=== PATIENT | male | born 1970 | race Hispanic/Latino ===

== ENCOUNTER 2016-08-03 16:03 | Emergency (ER) | payer MEDICARE ==
[2016-08-03 16:04] VITALS: BMI 37.4
[2016-08-03 16:24] VITALS: BP 141/83; PULSE 83; RESP 16; TEMP 98; O2SAT 96
--- NOTE | 2016-08-03 16:33 | ED PDOC ---
Arrival/HPI - General Chief Complaint: Lower Extremity Problem/Injury Time Seen by Provider: 08/03/16 16:29 Historian: Patient - History of Present Illness Narrative History of Present Illness (Text): 08/03/16 16:32 This 45 yo male presents to this ED c.o right knee pain since last night. Patient stated while running to get on the bus, he felt an acute pain on the anterior knee joint area. Denies hip pain, ankle pain, foot pain, fall, ecchymosis, weakness, paresthesias, or edema. Time/Duration: Other (since last night) Context: Home Past Medical History - Provider Review Nursing Documentation Reviewed: Yes - Past History Past History: Non-Contributing - Infectious Disease Hx of Infectious Diseases: None - Tetanus Immunization Tetanus Immunization: Up to Date - Past Medical History Past Medical History: No Previous - Cardiac Hx Cardiac Disorders: Yes Hx Hypertension: Yes - Pulmonary Hx Respiratory Disorders: No - Neurological Hx Neurological Disorder: No - HEENT Hx HEENT Disorder: No - Renal Hx Renal Disorder: No - Endocrine/Metabolic Hx Endocrine Disorders: Yes Hx Diabetes Mellitus Type 2: Yes - Hematological/Oncological Hx Blood Disorders: No - Integumentary Hx Dermatological Disorder: No - Musculoskeletal/Rheumatological Hx Falls: No - Gastrointestinal Hx Gastrointestinal Disorders: No - Genitourinary/Gynecological Hx Genitourinary Disorders: No - Psychiatric Hx Psychophysiologic Disorder: No Hx Substance Use: No - Surgical History Hx Orthopedic Surgery: Yes (BILAT KNEE) - Anesthesia Hx Anesthesia: Yes Hx Anesthesia Reactions: No Hx Malignant Hyperthermia: No - Suicidal Assessment Feels Threatened In Home Enviroment: No Family/Social History - Physician Review Nursing Documentation Reviewed: Yes Family/Social History: No Known Family HX Smoking Status: Former Smoker Hx Alcohol Use: No Hx Substance Use: No Hx Substance Use Treatment: No Allergies/Home Meds Allergies/Adverse Reactions: Allergies No Known Allergies Allergy (Verified 08/03/16 16:18) Home Medications: Home Meds Medication Instructions Recorded Confirmed Metformin ER [Glucophage XR] 500 mg PO DAILY 04/29/15 08/03/16 Simvastatin [Zocor] 40 mg PO HS 04/29/15 08/03/16 Glimepiride [Amaryl] 1 mg PO DAILY 08/03/16 08/03/16 Losartan [Cozaar] 25 mg PO DAILY 08/03/16 08/03/16 Review of Systems - Review of Systems Constitutional: Normal. absent: Fatigue, Weight Change, Fevers Eyes: Normal ENT: Normal Respiratory: Normal Cardiovascular: Normal Gastrointestinal: Normal Genitourinary Male: Normal Musculoskeletal: Other (Right knee pain) Skin: Normal Neurological: Normal Endocrine: Normal Hemo/Lymphatic: Normal Psychiatric: Normal Physical Exam Vital Signs Temp Pulse Resp BP Pulse Ox 08/03/16 16:23 98.0 F 83 16 141/83 96 Temperature: Afebrile Blood Pressure: Normal Pulse: Regular Respiratory Rate: Normal Appearance: Positive for: Well-Appearing, Non-Toxic, Comfortable Pain Distress: None Mental Status: Positive for: Alert and Oriented X 3 - Systems Exam Head: Present: Atraumatic, Normocephalic Pupils: Present: PERRL Extroacular Muscles: Present: EOMI Conjunctiva: Present: Normal Mouth: Present: Moist Mucous Membranes Neck: Present: Normal Range of Motion Respiratory/Chest: Present: Clear to Auscultation, Good Air Exchange. No: Respiratory Distress, Accessory Muscle Use Cardiovascular: Present: Regular Rate and Rhythm, Normal S1, S2. No: Murmurs Abdomen: Present: Normal Bowel Sounds. No: Tenderness, Distention, Peritoneal Signs Back: Present: Normal Inspection. No: CVA Tenderness Upper Extremity: Present: Normal Inspection. No: Cyanosis, Edema Lower Extremity: Present: Normal Inspection, NORMAL PULSES, Normal ROM, Tenderness (Mild anterior right knee joint tenderness. No erythema, or ecchymosis. No septic knee joint. [place] test was negation. Anterior and Posterior Knee drawer test were negative.), Neurovascularly Intact, Capillary Refill < 2 s. No: Edema, CALF TENDERNESS, Pattie's Sign, Swelling, Erythema, Deformity, Temperature Abnormalties Neurological: Present: GCS=15, CN II-XII Intact, Speech Normal Skin: Present: Warm, Dry, Normal Color. No: Rashes Psychiatric: Present: Alert, Oriented x 3, Normal Insight, Normal Concentration Medical Decision Making ED Course and Treatment: 08/03/16 17:35 Re-evaluation. Patient feels better. Discussed results and plan with patient who expresses understanding. All questions answered and there is agreement with the plan to discharge home with instructions. Patient stable for discharge. Return if symptoms persist or worsen. Patient stated he has a knee brace at home. He refused cane [place] PRACTICE OR STUDENT TEACHER AWARE was reviewed. I had a long discussion regarding the use of Opiods pain medication, which has a high risk for addiction to narcotic pain medication. Percocet can also cause constipation, drowsiness, and allergies. Do not drive or operate Machinery when using Percocet. Percocet could be use for no more than 2 days. Re-evaluation Time: 17:35 Reassessment Condition: Re-examined, Improved - RAD Interpretation Narrative RAD Interpretations (Text): 08/03/16 17:36 Knee x-rays: No Fx or sublux. Normal soft tissue. Mild DJD Radiology Orders: 08/03/16 16:40 KNEE W PATELLA RIGHT 3 VIEW [RAD] Stat - Medication Orders Current Medication Orders: Discontinued Medications Ketorolac Tromethamine (Toradol) 15 mg IM STAT STA Stop: 08/03/16 16:42 Last Admin: 08/03/16 16:53 Dose: 15 mg Oxycodone/Acetaminophen (Percocet 5/325 Mg Tab) 1 tab PO STAT STA Stop: 08/03/16 16:42 Last Admin: 08/03/16 16:53 Dose: 1 tab Disposition/Present on Arrival - Present on Arrival Any Indicators Present on Arrival: No History of DVT/PE: No History of Uncontrolled Diabetes: Yes Urinary Catheter: No History of Decub. Ulcer: No History Surgical Site Infection Following: None - Disposition Have Diagnosis and Disposition been Completed?: Yes Diagnosis: Knee pain Disposition: HOME/ ROUTINE Disposition Time: 17:36 Patient Plan: Discharge Condition: GOOD Discharge Instructions (ExitCare): Knee Pain (ED) Additional Instructions: Call private doctor for follow up visit in 1-2 days. Take medication as instructed. Prescriptions: Naproxen 500 mg PO BID #14 tab oxyCODONE/Acetaminophen [Percocet 5/325 mg Tab] 1 ea PO BID PRN #5 tab PRN Reason: Pain, Severe (8-10) Referrals: Cale Garnett MD [Family Provider] - Follow up with primary Forms: WORK NOTE
[2016-08-03] MEDS ORDERED: Oxycodone/Acetaminophen 5/325 mg Tab PO STA (16:41)
--- NOTE | 2016-08-04 09:35 | RAD ---
PROCEDURE: Right Knee Radiographs. HISTORY: pain COMPARISON: None. FINDINGS: BONES: Normal. No fracture. JOINTS: Normal. No osteoarthritis. JOINT EFFUSION: None. OTHER FINDINGS: The patella is unremarkable IMPRESSION: Normal radiographs of the right knee.
== END 2016-08-03 17:47 | disposition home or self-care (01) ==
LOC: ED 16:03
DX: M25.561 Pain in right knee (principal)
CPT/HCPCS: 73562; 96372; 99282; J1885

== ENCOUNTER 2016-09-11 08:00 | Emergency (ER) | payer MEDICARE ==
[2016-09-11 19:39] VITALS: BMI 37.4
[2016-09-11 20:04] VITALS: BP 149/81; PULSE 80; RESP 16; TEMP 98.8; O2SAT 98
[2016-09-11] MEDS ORDERED: Naproxen 550 mg Tab PO STA (20:31)
--- NOTE | 2016-09-11 21:07 | ED PDOC ---
Arrival/HPI - General Chief Complaint: Lower Extremity Problem/Injury Time Seen by Provider: 09/11/16 19:55 Historian: Patient - History of Present Illness Narrative History of Present Illness (Text): 09/11/16 19:55 A 45 year old male presents to the emergency department complaining of left ankle pain or the past 4 days. Patient notes intermittent chronic right knee pain, due to a prior injury and has had surgery to repair it, but since has not followed up with orthopedics. He denies any trauma, numbness, decreased sensation in motion, fever, or any other complaints at this time. Time/Duration: < week (4 days) Symptom Onset: Gradual Symptom Course: Unchanged Activities at Onset: Rest Context: Home Past Medical History - Provider Review Nursing Documentation Reviewed: Yes - Past History Past History: Non-Contributing - Infectious Disease Hx of Infectious Diseases: None - Tetanus Immunization Tetanus Immunization: Up to Date - Past Medical History Past Medical History: No Previous - Cardiac Hx Cardiac Disorders: Yes Hx Hypertension: Yes - Pulmonary Hx Respiratory Disorders: No - Neurological Hx Neurological Disorder: No - HEENT Hx HEENT Disorder: No - Renal Hx Renal Disorder: No - Endocrine/Metabolic Hx Endocrine Disorders: Yes Hx Diabetes Mellitus Type 2: Yes - Hematological/Oncological Hx Blood Disorders: No - Integumentary Hx Dermatological Disorder: No - Musculoskeletal/Rheumatological Hx Falls: No - Gastrointestinal Hx Gastrointestinal Disorders: No - Genitourinary/Gynecological Hx Genitourinary Disorders: No - Psychiatric Hx Psychophysiologic Disorder: No Hx Substance Use: No - Surgical History Hx Orthopedic Surgery: Yes (BILAT KNEE) - Anesthesia Hx Anesthesia: Yes Hx Anesthesia Reactions: No Hx Malignant Hyperthermia: No - Suicidal Assessment Feels Threatened In Home Enviroment: No Family/Social History - Physician Review Nursing Documentation Reviewed: Yes Family/Social History: Unknown Family HX Smoking Status: Former Smoker Hx Alcohol Use: No Hx Substance Use: No Hx Substance Use Treatment: No Allergies/Home Meds Allergies/Adverse Reactions: Allergies No Known Allergies Allergy (Verified 09/11/16 20:00) Home Medications: Home Meds Medication Instructions Recorded Confirmed Metformin ER [Glucophage XR] 500 mg PO DAILY 04/29/15 09/11/16 Simvastatin [Zocor] 40 mg PO HS 04/29/15 09/11/16 Glimepiride [Amaryl] 1 mg PO DAILY 08/03/16 09/11/16 Losartan [Cozaar] 25 mg PO DAILY 08/03/16 09/11/16 Review of Systems - Physician Review All systems were reviewed & negative as marked: Yes - Review of Systems Constitutional: absent: Fevers Musculoskeletal: Other (right knee and left ankle pain) Neurological: Other (no numbess) Physical Exam Vital Signs Reviewed: Yes Vital Signs Temp Pulse Resp BP Pulse Ox 09/11/16 20:05 98.8 F 80 16 149/81 98 09/11/16 20:01 98.8 F 80 16 149/81 98 Temperature: Afebrile Blood Pressure: Normal Pulse: Regular Respiratory Rate: Normal Appearance: Positive for: Well-Appearing, Non-Toxic, Comfortable Pain Distress: None Mental Status: Positive for: Alert and Oriented X 3 - Systems Exam Head: Present: Atraumatic, Normocephalic Neck: Present: Normal Range of Motion Respiratory/Chest: Present: Clear to Auscultation, Good Air Exchange. No: Respiratory Distress, Accessory Muscle Use Cardiovascular: Present: Regular Rate and Rhythm, Normal S1, S2. No: Murmurs Back: Present: Normal Inspection Upper Extremity: Present: Normal Inspection. No: Cyanosis, Edema Lower Extremity: Present: NORMAL PULSES (2+), Normal ROM, Other (Mid point tenderness to the medial left ankle 2+; normal foot exam ) Neurological: Present: GCS=15, CN II-XII Intact, Speech Normal Skin: Present: Warm Psychiatric: Present: Alert, Oriented x 3, Normal Insight, Normal Concentration Medical Decision Making ED Course and Treatment: 09/11/16 19:55 Impression: A 45 year old male with left ankle pain and chronic right knee pain. Differential Diagnosis included but are not limited to: Tendonitis vs. Arthritis Plan: -- Left Ankle X-Ray -- Naproxen -- Reassess and disposition Prior Visits: Notes and results from previous visits were reviewed. Patient was last seen in the Emergency department on Progress Notes: 09/11/16 21:28 XR L ankle: mild soft tissue swelling, no fracture, no dislocation, as read by PA Patient advised that official radiology read of XR is still pending and will call the patient if there is any discrepancy within 24 hours. X-ray results discussed with patient in great detail. Holland wrap applied to the left ankle. Based on history, exam and diagnostic results plan will be for outpatient follow -up with orthopedic referral provided. Prescription provided. Patient states he fully agrees with and understands discharge instructions. States that he agrees with the plan and disposition. Verbalized and repeated discharge instructions and plan. I have given the patient opportunity to ask any additional questions. Follow up with orthopedic referral provided in 1-2 days without fail. Advised to take medication as prescribed. Return to the emergency room at any time for any new or worsening symptoms. - RAD Interpretation Radiology Orders: 09/11/16 20:31 ANKLE LEFT 3 VIEWS ROUTINE [RAD] Stat - Medication Orders Current Medication Orders: Discontinued Medications Naproxen (Anaprox Ds) 550 mg PO ONCE STA Stop: 09/11/16 20:32 Last Admin: 09/11/16 21:07 Dose: 550 mg - PA / SEO COORDINATOR / Resident Statement MD/DO has reviewed & agrees with the documentation as recorded. - Scribe Statement The provider has reviewed the documentation as recorded by the Scribe Meryl Rome training under Terrance De La Fuente Provider Scribe Attestation: All medical record entries made by the Scribe were at my direction and personally dictated by me. I have reviewed the chart and agree that the record accurately reflects my personal performance of the history, physical exam, medical decision making, and the department course for this patient. I have also personally directed, reviewed, and agree with the discharge instructions and disposition. Disposition/Present on Arrival - Present on Arrival Any Indicators Present on Arrival: Yes History of DVT/PE: No History of Uncontrolled Diabetes: Yes Urinary Catheter: No History of Decub. Ulcer: No History Surgical Site Infection Following: None - Disposition Have Diagnosis and Disposition been Completed?: Yes Diagnosis: Ankle pain, left, Knee pain, right Disposition: HOME/ ROUTINE Disposition Time: 21:15 Patient Plan: Discharge Condition: GOOD Discharge Instructions (ExitCare): Arthralgia (ED), Tendinitis (ED) Print Language: [place] Additional Instructions: Thank you for letting us take care of you today. You were treated for right knee pain, left ankle pain, likely tendinitis. The emergency medical care you received today was directed at your acute symptoms. If you were prescribed any medication, please fill it and take as directed. It may take several days for your symptoms to resolve. Return to the Emergency Department if your symptoms worsen, do not improve, or if you have any other problems. Please contact your doctor in 2 days for re-evaluation and follow up / or call one of the physicians/clinics you have been referred to that are listed on the Patient Visit Information form that is included in your discharge packet. Bring any paperwork you were given at discharge with you along with any medications you are taking to your follow up visit. Our treatment cannot replace ongoing medical care by a primary care provider (PCP) outside of the emergency department. Thank you for allowing the [facility] team to be part of your care today. Prescriptions: Meloxicam [Mobic] 15 mg PO DAILY #20 tab Referrals: Montserrat Bolaños, [Primary Care Provider] - Follow up with primary Shemar Torrez III, MD [Medical Doctor] - Follow up with primary Forms: WORK NOTE
--- NOTE | 2016-09-12 10:46 | RAD ---
PROCEDURE: Left Ankle Radiographs. HISTORY: pain COMPARISON: None FINDINGS: BONES: Normal. No fracture. Incidentally noted accessory ossicle, the os trigonum. JOINTS: Normal. No osteoarthritis. Ankle mortise maintained. Talar dome intact SOFT TISSUES: Normal. OTHER FINDINGS: None. IMPRESSION: Normal left ankle radiographs.
== END 2016-09-11 22:03 | disposition home or self-care (01) ==
LOC: ED 19:39
DX: M25.572 Pain in left ankle and joints of left foot (principal); M25.561 Pain in right knee; I10 Essential (primary) hypertension

== ENCOUNTER 2017-01-29 07:49 | Inpatient (IN) | payer MEDICARE, OTHER ==
[2017-01-29 07:54] VITALS: BMI 32.1
--- NOTE | 2017-01-29 08:34 | ED PDOC ---
Arrival/HPI - General Chief Complaint: Male Genitourinary Time Seen by Provider: 01/29/17 07:55 Historian: Patient - History of Present Illness Narrative History of Present Illness (Text): 01/29/17 08:25 A 46 year old male, whose past medical history includes hypertension and diabetes type 2, presents to the emergency department complaining of bloody stool since 03:00. Patient reports patient has had two episode of dark bloody stool and has been unable to sleep due to concern of symptom. Patient mentions episode has occurred before last year, but had not seen a doctor. Patient has no other complaints at this time. Currently does no take any blood thinners, but takes Excedrin Extra Strength (intake approximately 3-4 days at a time) and Naproxen (taken 2-3 times a week or whenever experiencing pain in neck). Patient has had no recent blood transfusions. No history of colon CA in family. PMD: Dr. Cale Garnett Time/Duration: 4-6 hours (03:00) Symptom Onset: Sudden Symptom Course: Unchanged Past Medical History - Provider Review Nursing Documentation Reviewed: Yes - Past History Past History: Non-Contributing - Infectious Disease Hx of Infectious Diseases: None - Tetanus Immunization Tetanus Immunization: Up to Date - Past Medical History Past Medical History: No Previous - Cardiac Hx Cardiac Disorders: Yes Hx Hypertension: Yes - Pulmonary Hx Respiratory Disorders: No - Neurological Hx Neurological Disorder: No - HEENT Hx HEENT Disorder: No - Renal Hx Renal Disorder: No - Endocrine/Metabolic Hx Endocrine Disorders: Yes Hx Diabetes Mellitus Type 1: Yes - Hematological/Oncological Hx Blood Disorders: No - Integumentary Hx Dermatological Disorder: No - Musculoskeletal/Rheumatological Hx Musculoskeletal Disorders: No - Gastrointestinal Hx Gastrointestinal Disorders: No - Genitourinary/Gynecological Hx Genitourinary Disorders: No - Psychiatric Hx Psychophysiologic Disorder: No Hx Substance Use: No - Surgical History Hx Orthopedic Surgery: Yes (BILAT KNEE) - Anesthesia Hx Anesthesia: Yes Hx Anesthesia Reactions: No Hx Malignant Hyperthermia: No - Suicidal Assessment Feels Threatened In Home Enviroment: No Family/Social History - Physician Review Nursing Documentation Reviewed: Yes Family/Social History: Other (nc; patient states having no family history of colon CA) Smoking Status: Light Smoker < 10 Cigarettes Daily Hx Alcohol Use: No Hx Substance Use: No Hx Substance Use Treatment: No Allergies/Home Meds Allergies/Adverse Reactions: Allergies No Known Allergies Allergy (Verified 01/29/17 11:28) Home Medications: Home Meds Medication Instructions Recorded Confirmed Metformin ER [Glucophage XR] 500 mg PO DAILY 04/29/15 01/29/17 Glimepiride [Amaryl] 1 mg PO DAILY 08/03/16 01/29/17 Cyclobenzaprine [Flexeril] 10 tab PO PRN PRN 01/29/17 01/29/17 Losartan [Cozaar] 25 mg PO DAILY 01/29/17 01/29/17 Naproxen [Naprosyn] 500 tab PO PRN PRN 01/29/17 01/29/17 Simvastatin [Simvastatin] 10 mg PO HS 01/29/17 01/29/17 Review of Systems - Review of Systems Genitourinary Male: Hematuria (2 episodes of dark bloody stools since 03:00) Physical Exam Vital Signs Reviewed: Yes Vital Signs Temp Pulse Resp BP Pulse Ox 01/29/17 13:27 82 18 126/73 98 01/29/17 10:12 92 H 18 155/94 H 98 01/29/17 08:02 99.0 F 106 H 18 196/99 H 98 Temperature: Afebrile Blood Pressure: Hypertensive Pulse: Regular Respiratory Rate: Normal Pain Distress: None Mental Status: Positive for: Alert and Oriented X 3 Finger Stick Blood Glucose: 428 - Systems Exam Head: Present: Atraumatic, Normocephalic Pupils: Present: PERRL Extroacular Muscles: Present: EOMI Conjunctiva: Present: Normal Mouth: Present: Moist Mucous Membranes Neck: Present: Normal Range of Motion Respiratory/Chest: Present: Clear to Auscultation, Good Air Exchange. No: Respiratory Distress, Accessory Muscle Use Cardiovascular: Present: Regular Rate and Rhythm, Normal S1, S2. No: Murmurs Abdomen: Present: Normal Bowel Sounds. No: Tenderness, Distention, Peritoneal Signs Genitourinary Male: Present: Other (stool sample grossly bloody) Back: Present: Normal Inspection Upper Extremity: Present: Normal Inspection. No: Cyanosis, Edema Lower Extremity: Present: Normal Inspection. No: Edema Neurological: Present: GCS=15, CN II-XII Intact, Speech Normal Skin: Present: Warm, Dry, Normal Color. No: Rashes Psychiatric: Present: Alert, Oriented x 3, Normal Insight, Normal Concentration Medical Decision Making - Lab Interpretations Lab Results: 01/29/17 08:55 01/29/17 08:55 Lab Results 01/29/17 10:46: Blood Type Confirm B POSITIVE 01/29/17 08:55: PT 11.6, INR 1.05, APTT 29.7 01/29/17 08:55: Blood Type B POSITIVE, Antibody Screen Negative, BBK History Checked No verified bt 01/29/17 08:55: Sodium 134, Potassium 4.6, Chloride 99, Carbon Dioxide 29, Anion Gap 11, BUN 20, Creatinine 0.8, Est GFR ( Amer) > 60, Est GFR (Non- Af Amer) > 60, Random Glucose 476 H*, Calcium 9.4, Total Bilirubin 0.8, AST 15 L , ALT 40, Alkaline Phosphatase 135 H, Total Protein 7.3, Albumin 4.2, Globulin 3.2, Albumin/Globulin Ratio 1.3 01/29/17 08:55: WBC 12.2 H, RBC 4.83, Hgb 14.4, Hct 41.9 L, MCV 86.7, MCH 29.8, MCHC 34.4, RDW 13.4, Plt Count 252, MPV 12.7 H, Gran % 59.0, Lymph % (Auto) 29.0 , [place] % (Auto) 8.5 H, Eos % (Auto) 2.9, Baso % (Auto) 0.6, Gran # 7.22 H, Lymph # 3.5 H, [place] # 1.0 H, Eos # 0.4, Baso # 0.07 I have reviewed the lab results: Yes - Medication Orders Current Medication Orders: Sodium Chloride (Sodium Chloride 0.9%) 1,000 mls @ 100 mls/hr IV .Q10H JOSÉ MIGUEL Last Admin: 01/30/17 20:00 Dose: 100 mls/hr eMAR Start Stop Document 01/30/17 20:00 SD (Rec: 01/30/17 22:29 SD [id number]) Intravenous Solution Start Date 01/30/17 Start Time 20:00 Insulin Human Lispro (Humalog Med) 0 units SC ACHS JOSÉ MIGUEL PRN Reason: Protocol Last Admin: 01/30/17 22:28 Dose: Not Given Non-Admin Reason: Blood Sugar Parameter MAR Blood Glucose Document 01/30/17 22:28 SD (Rec: 01/30/17 22:28 SD [id number]) Blood Glucose Finger Stick Blood Glucose (70-120) 252 Metoprolol Tartrate (Lopressor) 5 mg IVP Q8H PRN PRN Reason: Systolic Blood Pressure Ondansetron HCl (Zofran Tab) 4 mg PO Q8H PRN PRN Reason: Nausea/Vomiting Pantoprazole Sodium (Protonix Inj) 40 mg IVP BID JOSÉ MIGUEL Last Admin: 01/30/17 17:40 Dose: 40 mg IVP Administration Document 01/30/17 17:40 RV (Rec: 01/30/17 17:40 RV [id number]) Charges for Administration # of IVP Administrations 1 Discontinued Medications Sodium Chloride (Sodium Chloride 0.9%) 1,000 mls @ 999 mls/hr IV .Q1H1M STA Stop: 01/29/17 10:25 Last Admin: 01/29/17 09:30 Dose: 999 mls/hr eMAR Start Stop Document 01/29/17 09:30 OCS (Rec: 01/29/17 10:01 OCS [id number] Intravenous Solution Start Date 01/29/17 Start Time 09:30 Sodium Chloride (Sodium Chloride 0.9%) 1,000 mls @ 80 mls/hr IV .[id number] [facility] Insulin Human Regular (Humulin R Low) 1 units SC ACHS JOSÉ MIGUEL PRN Reason: Protocol Last Admin: 01/29/17 11:23 Dose: 3 units MAR Blood Glucose Document 01/29/17 11:23 OCS (Rec: 01/29/17 11:24 [id number] Blood Glucose Finger Stick Blood Glucose (70-120) 285 Subcutaneous Administrations Document 01/29/17 11:23 OCS (Rec: 01/29/17 11:24 OCS [id number]) Injection Site MAR Injection Site Umbilicus Charges for Administration # of Subcutaneous Administrations 1 Pantoprazole Sodium (Protonix Inj) 80 mg IVP STAT STA Stop: 01/29/17 08:32 Last Admin: 01/29/17 08:51 Dose: 80 mg IVP Administration Document 01/29/17 08:51 OCS (Rec: 01/29/17 08:52 [id number] Charges for Administration # of IVP Administrations 1 Pneumococcal Polyvalent Vaccine (Pneumovax 23 Vaccine) 0.5 ml IM .ONCE ONE Stop: 01/29/17 16:11 Last Admin: 01/29/17 16:15 Dose: Immunization Registry Document 01/29/17 16:15 ML (Rec: 01/29/17 16:15 ML [id number]) Immunization Registry Consent Date 01/29/17 Polyethylene Glycol/Electrolytes (Golytely) 4,000 ml PO ONCE ONE Stop: 01/30/17 17:47 Last Admin: 01/30/17 18:16 Dose: 4,000 ml Sodium Phosphate (Fleet Enema) 135 ml RC STAT STA Stop: 01/30/17 11:04 Last Admin: 01/30/17 11:16 Dose: 135 ml - Scribe Statement The provider has reviewed the documentation as recorded by the Marshall Melendez Provider Scribe Attestation: All medical record entries made by the Scribe were at my direction and personally dictated by me. I have reviewed the chart and agree that the record accurately reflects my personal performance of the history, physical exam, medical decision making, and the department course for this patient. I have also personally directed, reviewed, and agree with the discharge instructions and disposition. Disposition/Present on Arrival - Present on Arrival Any Indicators Present on Arrival: Yes History of DVT/PE: No History of Uncontrolled Diabetes: Yes Urinary Catheter: No History of Decub. Ulcer: No History Surgical Site Infection Following: None - Disposition Have Diagnosis and Disposition been Completed?: Yes Diagnosis: GI bleeding Disposition: HOSPITALIZED Disposition Time: 12:23 Patient Problems: Current Active Problems Problem Status Onset GI bleeding Acute Condition: STABLE
[2017-01-29 09:11] LABS: BASO # 0.07 K/mm3 (0.0-2.0); BASO % 0.6 % (0.0-3.0); EOS # 0.4 (0.0-0.7); EOS % 2.9 % (1.5-5.0); GRAN # 7.22 (1.4-6.5); HEMATOCRIT 41.9 % (42.0-52.0); LYMPH # 3.5 (1.2-3.4); MEAN CELL VOLUME 86.7 fl (80.0-105.0); MEAN CORPUSCULAR HEMOGLOBIN 29.8 pg (25.0-35.0); MEAN CORPUSCULAR HGB CONC 34.4 g/dl (31.0-37.0); MEAN PLATELET VOLUME 12.7 fl (7.0-11.0); MONO % 8.5 % (1.0-6.0); RED CELL DISTRIBUTION WIDTH 13.4 % (11.5-14.5); WHITE BLOOD COUNT 12.2 10^3/ul (4.5-11.0)
[2017-01-29 09:22] LABS: ALB/GLOB RATIO 1.3 (1.1-1.8); ALKALINE PHOSPHATASE 135 U/L (38-126); ALT/SGPT 40 U/L (7-56); AST/SGOT 15 U/L (17-59); BILIRUBIN,TOTAL 0.8 mg/dL (0.2-1.3); BLOOD UREA NITROGEN 20 mg/dL (7-21); CALCIUM 9.4 mg/dL (8.4-10.5); CARBON DIOXIDE 29 mmol/L (21-33); CHLORIDE 99 mmol/L (95-110); GFR AFRICAN-AMERICAN > 60; POTASSIUM 4.6 mmol/L (3.6-5.0); SODIUM 134 mmol/L (132-148); TOTAL PROTEIN 7.3 g/dL (5.8-8.3)
[2017-01-29 09:25] LABS: GLUCOSE,RANDOM 476 mg/dL (70-110)
[2017-01-29] MEDS ORDERED: Sodium Chloride 0.9% 1,000 ML IV STA (09:25)
[2017-01-29 09:27] LABS: INR 1.05 (0.93-1.08); PARTIAL THROMBOPLASTIN TIME 29.7 Seconds (25.1-36.5)
[2017-01-29] MEDS ORDERED: Insulin Regular 1 UNITS/0.01 ML ML ONE (10:11)
[2017-01-29] MEDS ORDERED: Insulin Reg-LOW-Coverage SC SCH (11:30)
[2017-01-29] MEDS ORDERED: Metoprolol 1 mg/ml Inj IVP PRN (13:37)
[2017-01-29] MEDS ORDERED: Sodium Chloride 0.9% 1,000 ML IV SCH (13:45)
[2017-01-29] MEDS: Sodium Chloride 0.9% 1,000 ML IV SCH (13:50)
--- NOTE | 2017-01-29 15:02 | CP.PCM.HP ---
<Steffen Solis - Last Filed: 01/29/17 14:53> History of Present Illness - History of Present Illness History of Present Illness: CC: Blood in stool HPI: Pt is a 46 y/o male w/ PMHx of DM II, HTN, HLD, ADHD, and chronic neck/ back pain presents w/ painless blood per rectum since 5pm yesterday. Pt also complained of assoc intermittent lower abd pain. Pt described the pain as a dull ache, and denies any radiation of pain. His last episode of hematochezia occurred in the ER, and his last normal bowel moment was yesterday afternoon. Pt reports taking occasional Naproxen for a chronic work related neck and back pain. Pt denied any h/o or current hemorrhoids or pain with wiping. Pt denied any past EGD or colonscopies. Pt states he BRBPR on one other occasion a few months ago, but resolved spontaneously. Pt also complains of BANKS, dizziness, fatigue, and nausea. Pt denies any CP, SOB, vomiting, constipation, diarrhea, fever, chills, hematemesis, numbness, tingling, dysurea, hematuria, and blurry vision. PMD: Tamir PMHx: HTN, DM II, HLD, ADHD, chronic neck/back pain PSHx: bilateral knee surgery, tonsillectomy FHx: Non-contributory Allergies: NKDA Social History: Quit EtOH 20 yrs ago, smokes 1 cigar/day for the past 2 yrs, quit smoking cigarettes 7 yrs ago, and denies any illicit drug use. Meds: Reviewed as per MAR Present on Admission - Present on Admission Any Indicators Present on Admission: No Review of Systems - Review of Systems Review of Systems: 12 point ROS reviewed and is negative other than what is stated in HPI. Past Patient History - Infectious Disease Hx of Infectious Diseases: None - Tetanus Immunizations Tetanus Immunization: Up to Date - Past Social History Smoking Status: Light Smoker < 10 Cigarettes Daily - CARDIAC Hx Cardiac Disorders: Yes Hx Hypertension: Yes - PULMONARY Hx Respiratory Disorders: No - NEUROLOGICAL Hx Neurological Disorder: No - HEENT Hx HEENT Problems: No - RENAL Hx Chronic Kidney Disease: No - ENDOCRINE/METABOLIC Hx Endocrine Disorders: Yes Hx Diabetes Mellitus Type 1: Yes - HEMATOLOGICAL/ONCOLOGICAL Hx Blood Disorders: No - INTEGUMENTARY Hx Dermatological Problems: No - MUSCULOSKELETAL/RHEUMATOLOGICAL Hx Musculoskeletal Disorders: No - GASTROINTESTINAL Hx Gastrointestinal Disorders: No - GENITOURINARY/GYNECOLOGICAL Hx Genitourinary Disorders: No - PSYCHIATRIC Hx Psychophysiologic Disorder: No Hx Substance Use: No - SURGICAL HISTORY Hx Orthopedic Surgery: Yes (BILAT KNEE) - ANESTHESIA Hx Anesthesia: Yes Hx Anesthesia Reactions: No Hx Malignant Hyperthermia: No Meds Allergies/Adverse Reactions: Allergies Allergy/AdvReac Type Severity Reaction Status Date / Time No Known Allergies Allergy Verified 01/29/17 11:28 Physical Exam - Constitutional Appears: No Acute Distress - Head Exam Head Exam: ATRAUMATIC, NORMOCEPHALIC - Eye Exam Eye Exam: EOMI, Normal appearance, PERRL. absent: Conjunctival injection - ENT Exam ENT Exam: Mucous Membranes Moist, Normal Exam - Neck Exam Neck exam: Positive for: Full Rom. Negative for: Lymphadenopathy, Tenderness, Thyromegaly - Respiratory Exam Respiratory Exam: Clear to Auscultation Bilateral. absent: Accessory Muscle Use , Rales, Rhonchi, Wheezes, Respiratory Distress - Cardiovascular Exam Cardiovascular Exam: RRR, +S1, +S2. absent: Diastolic murmur, Gallop, Rubs, Systolic Murmur - GI/Abdominal Exam GI & Abdominal Exam: Normal Bowel Sounds, Soft, Tenderness (LLQ, RLQ, suprapubic ). absent: Distended, Guarding, Mass, Rebound, Rigid - Rectal Exam Rectal Exam: absent: Hemorrhoids, Fecal Impaction Additional comments: Blood visualized per rectum, no hemorrhoids, anal fissure, fistula, prostate enlargement - Extremities Exam Extremities exam: Positive for: normal inspection - Back Exam Back exam: NORMAL INSPECTION - Psychiatric Exam Psychiatric exam: Normal Affect, Normal Mood - Skin Skin Exam: Dry, Intact, Normal Color, Warm Results - Vital Signs Recent Vital Signs: Last Vital Signs Temp 99.0 F 01/29/17 08:02 Pulse 82 01/29/17 13:27 Resp 18 01/29/17 13:27 BP 126/73 01/29/17 13:27 Pulse Ox 98 01/29/17 13:27 - Labs Result Diagrams: 01/29/17 08:55 01/29/17 08:55 Assessment & Plan - Assessment and Plan (Free Text) Assessment: 46 yo male with pmh of HTN, DM, ADHD, HLD, and chronic neck/back pain presents with BRBPR will be admitted for evaluation and treatment for lower GI bleed. Plan: 1. Lower GI Bleed - Admitted to remote telemetry, inpatient - H/H currently stable - Vital signs q4, monitor for tachycardia, hypotension - GI consulted - NPO, NS@100 - Protonix 40 mg IVP BID - F/u CT abd, CXR, EKG - F/u UA, urine culture - Zofran for nausea 2. DM - Glucose on admission 476 - Hold PO meds - ISS - Accuchecks ACHS - F/u A1C 3. HTN - Lopressor prn for SBP >200 - Hold home med for now - Monitor for bradycardia 4. Chronic neck/back pain - Hold Naproxen as it a/w upper GI bleed 5. H/o HLD - F/u Lipid panel - Hold home med for now GI/DVT PPx - Protonix - SCDs Pt seen and discussed in detail with Dr. Mello. Adolph Solis, PGY1 <Kimbre Mello - Last Filed: 01/29/17 16:17> Results - Vital Signs Recent Vital Signs: Last Vital Signs Temp 99.0 F 01/29/17 08:02 Pulse 82 01/29/17 13:27 Resp 18 01/29/17 13:27 BP 126/73 01/29/17 13:27 Pulse Ox 98 01/29/17 13:27 - Labs Result Diagrams: 01/29/17 08:55 01/29/17 08:55 Labs: Laboratory Results - last 24 hr 01/29/17 16:02 POC Glucose (mg/dL) 254 H Attending/Attestation - Attestation I have personally seen and examined this patient.: Yes I have fully participated in the care of the patient.: Yes I have reviewed all pertinent clinical information: Yes Notes (Text): 01/29/17 16:09 46 year old male with past medical history of hypertension, diabetes and dyslipidemia who presents with LGIB/BRBPR. CT abd/pelvis is negative for acute findings. Continue with NPO, IVF and protonix. GI evaluation is requested. Continue with insulin ss. Hold diabetes medications and antihypertensives for now. He also complains of lower abdominal pain. Ua/Ucx is ordered. Kimber Mello MD Hospitalist.
--- NOTE | 2017-01-29 15:31 | RAD ---
HISTORY: r/o pneumonia COMPARISON: 02/12/2016. FINDINGS: LUNGS: The lungs are well inflated and clear. PLEURA: No significant pleural effusion identified, no pneumothorax apparent. CARDIOVASCULAR: Normal. OSSEOUS STRUCTURES: There is mild levoscoliosis in the thoracolumbar spine. VISUALIZED UPPER ABDOMEN: Normal. OTHER FINDINGS: None. IMPRESSION: No active pulmonary disease.
--- NOTE | 2017-01-29 15:35 | CT ---
PROCEDURE: CT Abdomen and Pelvis without intravenous contrast HISTORY: lower gi bleed COMPARISON: None. TECHNIQUE: Without contrast.. Contrast Dose: Radiation dose: Total exam DLP = 874 mGy-cm. This CT exam was performed using one or more of the following dose reduction techniques: Automated exposure control, adjustment of the mA and/or kV according to patient size, and/or use of iterative reconstruction technique. FINDINGS: LOWER THORAX: Unremarkable. LIVER: Unremarkable. No gross lesion or ductal dilatation. GALLBLADDER AND BILE DUCTS: Unremarkable. PANCREAS: Unremarkable. No gross lesion or ductal dilatation. SPLEEN: Unremarkable. ADRENALS: Unremarkable. No mass. KIDNEYS AND URETERS: There is a 10 mm nonobstructing stone in the left kidney VASCULATURE: Unremarkable. No aortic aneurysm. BOWEL: Unremarkable. No obstruction. No gross mural thickening. APPENDIX: Unremarkable. Normal appendix. PERITONEUM: Unremarkable. No free fluid. No free air. LYMPH NODES: Unremarkable. No enlarged lymph nodes. BLADDER: Unremarkable. REPRODUCTIVE: Unremarkable. BONES: No acute fracture. OTHER FINDINGS: None. IMPRESSION: No acute findings
[2017-01-29] MEDS ORDERED: Influenza Vaccine 60 mcg/0.5 mL SYR (4YR UP) IM ONE (16:10)
[2017-01-29] MEDS ORDERED: Pneumococcal 23-Valent Vaccine IM ONE (16:10)
[2017-01-29] MEDS: Insulin Lispro (humaLOG) MEDIUM Coverage SC SCH ×2 (17:02→21:09)
[2017-01-29 19:49] LABS: HEMATOCRIT 36.5 % (42.0-52.0); MEAN CELL VOLUME 86.5 fl (80.0-105.0); MEAN CORPUSCULAR HEMOGLOBIN 29.6 pg (25.0-35.0); MEAN CORPUSCULAR HGB CONC 34.2 g/dl (31.0-37.0); MEAN PLATELET VOLUME 12.5 fl (7.0-11.0); RED CELL DISTRIBUTION WIDTH 13.5 % (11.5-14.5); WHITE BLOOD COUNT 9.4 10^3/ul (4.5-11.0)
[2017-01-30] MEDS: Sodium Chloride 0.9% 1,000 ML IV SCH ×3 (00:45→20:00)
[2017-01-30 06:27] LABS: HEMATOCRIT 43.4 % (42.0-52.0); MEAN CELL VOLUME 89.7 fl (80.0-105.0); MEAN CORPUSCULAR HEMOGLOBIN 29.8 pg (25.0-35.0); MEAN CORPUSCULAR HGB CONC 33.2 g/dl (31.0-37.0); RED CELL DISTRIBUTION WIDTH 13.2 % (11.5-14.5); WHITE BLOOD COUNT 9.1 10^3/ul (4.5-11.0)
[2017-01-30 06:45] LABS: MAGNESIUM 2.2 mg/dL (1.7-2.2)
[2017-01-30] MEDS: Insulin Lispro (humaLOG) MEDIUM Coverage SC SCH ×4 (07:58→22:28)
[2017-01-30 08:04] LABS: ALB/GLOB RATIO 1.2 (1.1-1.8); ALKALINE PHOSPHATASE 71 U/L (38-126); ALT/SGPT 56 U/L (7-56); AST/SGOT 38 U/L (17-59); BILIRUBIN,TOTAL 0.9 mg/dL (0.2-1.3); BLOOD UREA NITROGEN 10 mg/dL (7-21); CARBON DIOXIDE 29 mmol/L (21-33); CHLORIDE 102 mmol/L (98-107); GFR AFRICAN-AMERICAN > 60; GLUCOSE,RANDOM 93 mg/dL (70-110); POTASSIUM 3.9 mmol/L (3.6-5.0); SODIUM 140 mmol/L (132-148); TOTAL PROTEIN 7.6 g/dL (5.8-8.3)
--- NOTE | 2017-01-30 09:08 | CARD ---
APPROVED REPORT EKG Measurement Heart [id number] <Conclusion> Normal sinus rhythm Normal ECG
[2017-01-30] MEDS ORDERED: Midazolam 2 MG/2 ML VIAL ONE (12:08)
[2017-01-30] MEDS ORDERED: Propofol 10 mg/ml Inj (20 ML) ONE ×2 (12:08→12:47)
[2017-01-30] MEDS ORDERED: Succinylcholine 200 mg/10 ml Inj IV ONE (12:47)
--- NOTE | 2017-01-30 13:48 | CP.PCM.PN ---
<Steffen Solis - Last Filed: 01/30/17 13:38> Subjective - Date & Time of Evaluation Date of Evaluation: 01/30/17 Time of Evaluation: 13:38 - Subjective Subjective: Medicine Progress Note: Pt seen and examined at bedside. Pt had EGD and flex sigmoidoscopy performed today. Pt denied any further blood per rectum. Pt had 1 BM since admission which was non-bloody. Pt denied CP, SOB, nausea, vomiting, diarrhea, constipation, BANKS, dizziness, or fatigue. Objective - Vital Signs/Intake and Output Vital Signs (last 24 hours): Temp Pulse Resp BP Pulse Ox 98.1 F 72 16 123/73 99 01/30/17 13:29 01/30/17 13:29 01/30/17 13:29 01/30/17 13:29 01/30/17 13:29 Intake and Output: 01/30/17 01/30/17 06:59 18:59 Intake Total 1600 Balance 1600 - Medications Medications: Current Medications Sodium Chloride (Sodium Chloride 0.9%) 1,000 mls @ 100 mls/hr IV .Q10H [facility] Last Admin: 01/30/17 11:16 Dose: 100 mls/hr Insulin Human Lispro (Humalog Med) 0 units SC ACHS JOSÉ MIGUEL PRN Reason: Protocol Last Admin: 01/30/17 12:24 Dose: Not Given Metoprolol Tartrate (Lopressor) 5 mg IVP Q8H PRN PRN Reason: Systolic Blood Pressure Ondansetron HCl (Zofran Tab) 4 mg PO Q8H PRN PRN Reason: Nausea/Vomiting Pantoprazole Sodium (Protonix Inj) 40 mg IVP BID [facility] Last Admin: 01/30/17 09:01 Dose: 40 mg - Labs Labs: 01/30/17 06:18 01/30/17 07:00 PT 11.6 SECONDS (9.4-12.5) 01/29/17 08:55 INR 1.05 (0.93-1.08) 01/29/17 08:55 APTT 29.7 Seconds (25.1-36.5) 01/29/17 08:55 - Constitutional Appears: No Acute Distress - Head Exam Head Exam: ATRAUMATIC, NORMOCEPHALIC - Eye Exam Eye Exam: EOMI, PERRL - ENT Exam ENT Exam: Mucous Membranes Moist - Neck Exam Neck Exam: Full ROM. absent: Lymphadenopathy, Tenderness, Thyromegaly - Respiratory Exam Respiratory Exam: Clear to Ausculation Bilateral. absent: Accessory Muscle Use , Rales, Rhonchi, Wheezes, Respiratory Distress - Cardiovascular Exam Cardiovascular Exam: RRR, +S1, +S2. absent: Diastolic murmur, Gallop, Rubs, Murmur - GI/Abdominal Exam GI & Abdominal Exam: Soft, Tenderness (lower abdomen/suprapubic). absent: Distended, Firm, Guarding, Rebound - Extremities Exam Extremities Exam: Normal Inspection - Back Exam Back Exam: NORMAL INSPECTION - Neurological Exam Neurological Exam: Alert, Awake, Oriented x3 - Psychiatric Exam Psychiatric exam: Normal Affect, Normal Mood - Skin Skin Exam: Dry, Intact, Normal Color, Warm Assessment and Plan - Assessment and Plan (Free Text) Assessment: 46 yo male with pmh of HTN, DM, ADHD, HLD, and chronic neck/back pain presents with BRBPR will be admitted for evaluation and treatment for lower GI bleed. Plan: 1. Lower GI Bleed - Admitted to remote telemetry, inpatient - H/H currently stable - Vital signs stable - GI consulted EGD showed small non-bleeding ulcers, 1 gastric polyp; biopsy performed Flex sigmoidoscopy showed non-bleeding internal hemorrhoid Colonoscopy tomorrow due to suspected bleed in right colon/terminal ileum - CT abd and CXR negative - Zofran for nausea - F/u UA, urine culture - Protonix 40 mg IVP BID - CLD, NS@100 2. DM - Hgb A1C 12.8% - Due to elevated A1C, patient counselled on the need for insulin at home. However, patient stated he did not want to use insulin. - Diabetic education consulted - Hold PO meds - ISS - Accuchecks ACHS 3. HTN - Lopressor prn for SBP >200 - Hold home med for now 4. Chronic neck/back pain - Hold Naproxen as it a/w upper GI bleed 5. H/o HLD - F/u Lipid panel - Hold home med for now GI/DVT PPx - Protonix - SCDs Pt seen and discussed in detail with Dr. Mello. Adolph Solis, PGY1 <Kimber Mello - Last Filed: 01/30/17 14:51> Objective - Vital Signs/Intake and Output Vital Signs (last 24 hours): Temp Pulse Resp BP Pulse Ox 98.1 F 69 15 123/80 99 01/30/17 13:59 01/30/17 13:59 01/30/17 13:59 01/30/17 13:59 01/30/17 13:59 Intake and Output: 01/30/17 01/30/17 06:59 18:59 Intake Total 1600 Balance 1600 - Medications Medications: Current Medications Sodium Chloride (Sodium Chloride 0.9%) 1,000 mls @ 100 mls/hr IV .Q10H [facility] Last Admin: 01/30/17 11:16 Dose: 100 mls/hr Insulin Human Lispro (Humalog Med) 0 units SC ACHS JOSÉ MIGUEL PRN Reason: Protocol Last Admin: 01/30/17 12:24 Dose: Not Given Metoprolol Tartrate (Lopressor) 5 mg IVP Q8H PRN PRN Reason: Systolic Blood Pressure Ondansetron HCl (Zofran Tab) 4 mg PO Q8H PRN PRN Reason: Nausea/Vomiting Pantoprazole Sodium (Protonix Inj) 40 mg IVP BID [facility] Last Admin: 01/30/17 09:01 Dose: 40 mg - Labs Labs: 01/30/17 06:18 01/30/17 07:00 PT 11.6 SECONDS (9.4-12.5) 01/29/17 08:55 INR 1.05 (0.93-1.08) 01/29/17 08:55 APTT 29.7 Seconds (25.1-36.5) 01/29/17 08:55 Attending/Attestation - Attestation I have personally seen and examined this patient.: Yes I have fully participated in the care of the patient.: Yes I have reviewed all pertinent clinical information, including history, physical exam and plan: Yes Notes (Text): 01/30/17 14:46 46 year old male with past medical history of hypertension, diabetes and dyslipidemia who presented with LGIB/BRBPR. CT abd/pelvis was negative for acute findings. He is on iv fluids and protonix. He was seen by GI and is s/p EGD anf flex sigmoidoscopy with findings as above. Case was discussed with GI; will plan for colonoscopy tomorrow. His naproxen is on hold. Recommended to continue to avoid NSAIDs. A1c level is 12.8. Discussed with patient regarding starting insulin therapy which he refused. Recommended to optimize po medications for diabetes and diet modification as he is refusing insulin. Kimber Mello MD Hospitalist.
[2017-01-30 16:56] VITALS: RESP 18
[2017-01-30] MEDS ORDERED: Peg-Electrolyte Oral Soln 4L (Golytely) PO ONE (17:46)
[2017-01-30 20:09] LABS: URINE APPEARANCE CLEAR (CLEAR); URINE BILIRUBIN NEGATIVE (NEGATIVE); URINE BLOOD NEGATIVE (NEGATIVE); URINE COLOR LIGHT YELLOW (YELLOW); URINE GLUCOSE (UA) >=1000 mg/dL (NEGATIVE); URINE KETONE NEGATIVE (NEGATIVE); URINE LEUKOCYTE ESTERASE NEGATIVE Leu/uL (NEGATIVE); URINE PROTEIN NEGATIVE mg/dL (<30 mg/dL); URINE UROBILINOGEN 0.2 E.U./dL (<1 E.U./dL)
--- NOTE | 2017-01-31 04:52 | CON ---
DATE: HISTORY OF PRESENT ILLNESS: This patient was seen and evaluated earlier today. This is a 46-year-old patient with past medical history of diabetes mellitus, hypertension, dyslipidemia, ADHD, chronic neck pain and back pain, was taking Naprosyn more often for headache and also pain in the back. The patient presented to the emergency room with bright red blood per rectum. Denies any vomiting blood. No black stool. The patient denies having had any endoscopy or colonoscopy. OTHER PAST MEDICAL HISTORY: Significant as above. PAST SURGICAL HISTORY: Significant for knee surgery and tonsillectomy. FAMILY HISTORY: Noncontributory. ALLERGIES: NO KNOWN DRUG ALLERGIES. SOCIAL HISTORY: He stopped alcohol about 20 years ago. Smokes about one cigar a day. REVIEW OF SYSTEMS: Positive as above. Other systems reviewed. PHYSICAL EXAMINATION: GENERAL: The patient is lying on the bed, not in acute distress. VITAL SIGNS: Temperature is 97.9, blood pressure is 132/90, respiration is 18, and O2 saturation is 100%. HEENT: Atraumatic. Anicteric. NECK: Supple. HEART: S1 and S2 heard. LUNGS: Bilateral air entry present. ABDOMEN: Soft. There is a mild tenderness present in the epigastric or periumbilical area. No guarding. EXTREMITIES: No edema. No cyanosis. NEUROLOGIC: Alert, oriented. Moves all the extremities. LABORATORY DATA: Hemoglobin is 14.4, hematocrit 43.4, WBC is 9.1, and platelets 178. BUN is normal, actually BUN 10 and creatinine 0.7. IMPRESSION: This 46-year-old patient with a history of nonsteroidal antiinflammatory use, now presented with episodes of bright red blood per rectum. No change of bowel habits. No melena. No fever. The differential diagnoses should include upper gastrointestinal bleeding, hemorrhoids, diverticulosis, internal hemorrhoids, and angiodysplasia, and neoplasia should be considered. Other comorbidities include chronic back pain, neck pain, and diabetes mellitus. The patient was at home also. RECOMMENDATIONS: The etiology for GI bleeding is unclear. The differential diagnoses include peptic ulcer disease, insulin use, erosive esophagitis, hemorrhoids, diverticulosis, and neoplasia to be considered. We would recommend: 1. Follow up with the hemoglobin and hematocrit. 2. Empiric PPI therapy. 3. Would benefit from the upper GI endoscopy, possibly flexible sigmoidoscopy. I did have detailed discussion with the family. Reviewed with the patient, but initially he was reluctant, later he agreed for the endoscopy, which was performed. We will continue to closely followup of his care and suggest further management based on the clinical course. Mariia Shaw MD
[2017-01-31 07:14] LABS: HEMATOCRIT 35.8 % (42.0-52.0); MEAN CELL VOLUME 86.3 fl (80.0-105.0); MEAN CORPUSCULAR HEMOGLOBIN 28.9 pg (25.0-35.0); MEAN CORPUSCULAR HGB CONC 33.5 g/dl (31.0-37.0); MEAN PLATELET VOLUME 12.1 fl (7.0-11.0); RED CELL DISTRIBUTION WIDTH 13.5 % (11.5-14.5); WHITE BLOOD COUNT 9.3 10^3/ul (4.5-11.0)
[2017-01-31 07:24] LABS: ALB/GLOB RATIO 1.3 (1.1-1.8); ALKALINE PHOSPHATASE 100 U/L (38-126); ALT/SGPT 33 U/L (7-56); AST/SGOT 15 U/L (17-59); BILIRUBIN,TOTAL 0.5 mg/dL (0.2-1.3); BLOOD UREA NITROGEN 12 mg/dL (7-21); CALCIUM 9.1 mg/dL (8.4-10.5); CARBON DIOXIDE 30 mmol/L (21-33); CHLORIDE 103 mmol/L (98-107); GFR AFRICAN-AMERICAN > 60; GLUCOSE,RANDOM 179 mg/dL (70-110); POTASSIUM 3.7 mmol/L (3.6-5.0); SODIUM 139 mmol/L (132-148); TOTAL PROTEIN 6.6 g/dL (5.8-8.3)
[2017-01-31] MEDS ORDERED: Propofol 10 mg/ml Inj (20 ML) ONE (07:45)
[2017-01-31] MEDS ORDERED: Midazolam 2 MG/2 ML VIAL ONE (07:45)
[2017-01-31] MEDS ORDERED: Lidocaine 1% Inj (20ml) ONE (07:46)
[2017-01-31] MEDS: Insulin Lispro (humaLOG) MEDIUM Coverage SC SCH ×2 (07:47→13:20)
[2017-01-31 08:43] VITALS: TEMP 98.7
[2017-01-31] MEDS ORDERED: Sodium Chloride 0.9% 1,000 ML IV SCH (08:45)
[2017-01-31 08:48] VITALS: O2SAT 100
[2017-01-31 09:03] VITALS: BP 148/94; PULSE 75
--- NOTE | 2017-01-31 16:41 | CP.PCM.DIS ---
<Steffen Solis - Last Filed: 01/31/17 16:31> Provider - Provider Date of Admission: 01/29/17 12:23 Attending physician: Kimber Mello MD Primary care physician: Cale Garnett MD Consults: GI: Valeria Time Spent in preparation of Discharge (in minutes): 45 Hospital Course - Lab Results Lab Results: Most Recent Lab Values WBC 9.3 10^3/ul (4.5-11.0) 01/31/17 07:00 RBC 4.15 10^6/uL (3.5-6.1) 01/31/17 07:00 Hgb 12.0 g/dL (14.0-18.0) L D 01/31/17 07:00 Hct 35.8 % (42.0-52.0) L 01/31/17 07:00 MCV 86.3 fl (80.0-105.0) D 01/31/17 07:00 MCH 28.9 pg (25.0-35.0) 01/31/17 07:00 MCHC 33.5 g/dl (31.0-37.0) 01/31/17 07:00 RDW 13.5 % (11.5-14.5) 01/31/17 07:00 Plt Count 193 10^3/uL (120.0-450.0) 01/31/17 07:00 MPV 12.1 fl (7.0-11.0) H 01/31/17 07:00 Gran % 59.0 % (50.0-68.0) 01/29/17 08:55 Lymph % (Auto) 29.0 % (22.0-35.0) 01/29/17 08:55 Kendall % (Auto) 8.5 % (1.0-6.0) H 01/29/17 08:55 Eos % (Auto) 2.9 % (1.5-5.0) 01/29/17 08:55 Baso % (Auto) 0.6 % (0.0-3.0) 01/29/17 08:55 Gran # 7.22 (1.4-6.5) H 01/29/17 08:55 Lymph # 3.5 (1.2-3.4) H 01/29/17 08:55 Kendall # 1.0 (0.1-0.6) H 01/29/17 08:55 Eos # 0.4 (0.0-0.7) 01/29/17 08:55 Baso # 0.07 K/mm3 (0.0-2.0) 01/29/17 08:55 PT 11.6 SECONDS (9.4-12.5) 01/29/17 08:55 INR 1.05 (0.93-1.08) 01/29/17 08:55 APTT 29.7 Seconds (25.1-36.5) 01/29/17 08:55 Sodium 139 mmol/L (132-148) 01/31/17 07:00 Potassium 3.7 mmol/L (3.6-5.0) 01/31/17 07:00 Chloride 103 mmol/L (98-107) 01/31/17 07:00 Carbon Dioxide 30 mmol/L (21-33) 01/31/17 07:00 Anion Gap 10 (10-20) 01/31/17 07:00 BUN 12 mg/dL (7-21) 01/31/17 07:00 Creatinine 0.7 mg/dL (0.8-1.5) L 01/31/17 07:00 Est GFR ( Amer) > 60 01/31/17 07:00 Est GFR (Non-Af Amer) > 60 01/31/17 07:00 POC Glucose (mg/dL) 313 mg/dL (65-110) H 01/31/17 11:36 Random Glucose 179 mg/dL (70-110) H 01/31/17 07:00 Hemoglobin A1c 12.8 % (4.2-6.5) H 01/29/17 13:34 Calcium 9.1 mg/dL (8.4-10.5) 01/31/17 07:00 Phosphorus 3.0 mg/dL (2.5-4.5) 01/30/17 06:18 Magnesium 2.2 mg/dL (1.7-2.2) 01/30/17 06:18 Total Bilirubin 0.5 mg/dL (0.2-1.3) 01/31/17 07:00 AST 15 U/L (17-59) L D 01/31/17 07:00 ALT 33 U/L (7-56) 01/31/17 07:00 Alkaline Phosphatase 100 U/L (38-126) 01/31/17 07:00 Total Protein 6.6 g/dL (5.8-8.3) 01/31/17 07:00 Albumin 3.7 g/dL (3.0-4.8) 01/31/17 07:00 Globulin 2.9 gm/dL 01/31/17 07:00 Albumin/Globulin Ratio 1.3 (1.1-1.8) 01/31/17 07:00 Triglycerides 36 mg/dL (35-160) 01/30/17 06:18 Cholesterol 117 mg/dL (130-200) L 01/30/17 06:18 LDL Cholesterol Direct 39 mg/dL (0-129) 01/30/17 06:18 HDL Cholesterol 55 mg/dL (29-60) 01/30/17 06:18 Urine Color Light yellow (YELLOW) 01/30/17 19:15 Urine Appearance Clear (CLEAR) 01/30/17 19:15 Urine pH 6.0 (4.7-8.0) 01/30/17 19:15 Ur Specific [place] 1.010 (1.005-1.035) 01/30/17 19:15 Urine Protein Negative mg/dL (<30 mg/dL) 01/30/17 19:15 Urine Glucose (UA) >=1000 mg/dL (NEGATIVE) 01/30/17 19:15 Urine Ketones Negative mg/dL (NEGATIVE) 01/30/17 19:15 Urine Blood Negative (NEGATIVE) 01/30/17 19:15 Urine Nitrate Negative (NEGATIVE) 01/30/17 19:15 Urine Bilirubin Negative (NEGATIVE) 01/30/17 19:15 Urine Urobilinogen 0.2 E.U./dL (<1 E.U./dL) 01/30/17 19:15 Ur Leukocyte Esterase Negative Samantha/uL (NEGATIVE) 01/30/17 19:15 Blood Type B POSITIVE 01/29/17 08:55 Blood Type Confirm B POSITIVE 01/29/17 10:46 Antibody Screen Negative 01/29/17 08:55 BBK History Checked No verified bt 01/29/17 08:55 - Hospital Course Hospital Course: Pt is a 46 y/o male w/ PMHx of DM II, HTN, HLD, ADHD, and chronic neck/back pain presented w/ painless blood per rectum. Pt also complained of assoc intermittent lower abd pain. Pt reported taking occasional Naproxen for a chronic work related neck and back pain. Pt denied any h/o or current hemorrhoids or pain with wiping. Pt denied any past EGD or colonscopies. Pt stated he BRBPR on one other occasion a few months ago, but resolved spontaneously. In the ED, labs and imaging were obtained. Pt was hypertensive. H /H was stable and glucose elevated. Pt was admitted for evaluation and treatment for lower GI bleed. During hospital course, CT abdomen and CXR was obtained which showed no active disease. GI was consulted who perfromed EGD, Flexible sigmoidoscopy, and colonoscopy. EGD showed small non-bleeding ulcers, 1 gastric polyp; biopsy performed. Flex sigmoidoscopy showed non-bleeding internal hemorrhoid. Colonscopy showed internal hemorrhoids, however patient did not have adequate bowel prep and visualization was skewed. GI recommended having repeat colonscopy in 2 months. Today, the patient was seen and examined at bedside. Pt's HgbA1C was 12.8%. Discussed with patient the need for compliance with his current DM medications and that insulin should be added to his current regimen. However, the patient declined insulin as he did not want to inject himself. As the patient's H/H remained stable and no signs of overt bleeding were found on colonscopy, the patient was discharged. The patient was advised to follow up with his PMD for DM , HTN, and HLD control. An rx was given for PPI and increased dose of metformin from his home dosage. Pt was advised to follow up with GI for repeat colonscopy in 2 months. Pt was also advised to cease using NSAIDs due to risk of GI bleed. Discharge Exam - Head Exam Head Exam: ATRAUMATIC, NORMAL INSPECTION, NORMOCEPHALIC - Eye Exam Eye Exam: EOMI, Normal appearance Pupil Exam: NORMAL ACCOMODATION - ENT Exam ENT Exam: Mucous Membranes Moist - Neck Exam Neck exam: Full Rom - Respiratory Exam Respiratory Exam: Clear to PA & Lateral. absent: Accessory Muscle Use, Rales, Rhonchi, Wheezes - Cardiovascular Exam Cardiovascular Exam: RRR, +S1, +S2. absent: Clicks, Diastolic murmur, Gallop, Rubs, Systolic Murmur - GI/Abdominal Exam GI & Abdominal Exam: Soft. absent: Distended, Guarding, Hernia, Rebound, Tenderness - Extremities Exam Extremities exam: normal inspection - Back Exam Back exam: NORMAL INSPECTION - Neurological Exam Neurological exam: Alert, Normal Gait, Oriented x3 - Psychiatric Exam Psychiatric exam: Normal Affect, Normal Mood - Skin Skin Exam: Dry, Intact, Normal Color, Warm Discharge Plan - Discharge Medications Prescriptions: Metformin ER [Glucophage XR] 1,000 mg PO DAILY #15 ter Pantoprazole [Protonix] 40 mg PO DAILY #15 ect - Follow Up Plan Condition: STABLE Disposition: HOME/ ROUTINE Instructions: Gastrointestinal Bleeding (DC) Additional Instructions: 1. Follow up with PMD within 1 week; A1C 12.8% medications should be adjusted, consider insulin 2. Follow up with GI. Either Dr. Shaw or GI of your choice 3. Repeat colonscopy in 2 months 4. Hold all NSAID use, including Naproxen 5. Metformin ER dosage increased to 1000 mg daily; Rx given 6. Take Protonix daily as prescribed 7. Resume all other medications as prescribed 8. Return to ED if symptoms worsen Referrals: Mariia Shaw MD [Medical Doctor] - Cale Garnett MD [Primary Care Provider] - <Kimber Mello - Last Filed: 01/31/17 17:09> Provider - Provider Date of Admission: 01/29/17 12:23 Attending physician: Kimber Mello MD Primary care physician: Cale Garnett MD Hospital Course - Lab Results Lab Results: Most Recent Lab Values WBC 9.3 10^3/ul (4.5-11.0) 01/31/17 07:00 RBC 4.15 10^6/uL (3.5-6.1) 01/31/17 07:00 Hgb 12.0 g/dL (14.0-18.0) L D 01/31/17 07:00 Hct 35.8 % (42.0-52.0) L 01/31/17 07:00 MCV 86.3 fl (80.0-105.0) D 01/31/17 07:00 MCH 28.9 pg (25.0-35.0) 01/31/17 07:00 MCHC 33.5 g/dl (31.0-37.0) 01/31/17 07:00 RDW 13.5 % (11.5-14.5) 01/31/17 07:00 Plt Count 193 10^3/uL (120.0-450.0) 01/31/17 07:00 MPV 12.1 fl (7.0-11.0) H 01/31/17 07:00 Gran % 59.0 % (50.0-68.0) 01/29/17 08:55 Lymph % (Auto) 29.0 % (22.0-35.0) 01/29/17 08:55 Kendall % (Auto) 8.5 % (1.0-6.0) H 01/29/17 08:55 Eos % (Auto) 2.9 % (1.5-5.0) 01/29/17 08:55 Baso % (Auto) 0.6 % (0.0-3.0) 01/29/17 08:55 Gran # 7.22 (1.4-6.5) H 01/29/17 08:55 Lymph # 3.5 (1.2-3.4) H 01/29/17 08:55 Kendall # 1.0 (0.1-0.6) H 01/29/17 08:55 Eos # 0.4 (0.0-0.7) 01/29/17 08:55 Baso # 0.07 K/mm3 (0.0-2.0) 01/29/17 08:55 PT 11.6 SECONDS (9.4-12.5) 01/29/17 08:55 INR 1.05 (0.93-1.08) 01/29/17 08:55 APTT 29.7 Seconds (25.1-36.5) 01/29/17 08:55 Sodium 139 mmol/L (132-148) 01/31/17 07:00 Potassium 3.7 mmol/L (3.6-5.0) 01/31/17 07:00 Chloride 103 mmol/L (98-107) 01/31/17 07:00 Carbon Dioxide 30 mmol/L (21-33) 01/31/17 07:00 Anion Gap 10 (10-20) 01/31/17 07:00 BUN 12 mg/dL (7-21) 01/31/17 07:00 Creatinine 0.7 mg/dL (0.8-1.5) L 01/31/17 07:00 Est GFR ( Amer) > 60 01/31/17 07:00 Est GFR (Non-Af Amer) > 60 01/31/17 07:00 POC Glucose (mg/dL) 313 mg/dL (65-110) H 01/31/17 11:36 Random Glucose 179 mg/dL (70-110) H 01/31/17 07:00 Hemoglobin A1c 12.8 % (4.2-6.5) H 01/29/17 13:34 Calcium 9.1 mg/dL (8.4-10.5) 01/31/17 07:00 Phosphorus 3.0 mg/dL (2.5-4.5) 01/30/17 06:18 Magnesium 2.2 mg/dL (1.7-2.2) 01/30/17 06:18 Total Bilirubin 0.5 mg/dL (0.2-1.3) 01/31/17 07:00 AST 15 U/L (17-59) L D 01/31/17 07:00 ALT 33 U/L (7-56) 01/31/17 07:00 Alkaline Phosphatase 100 U/L (38-126) 01/31/17 07:00 Total Protein 6.6 g/dL (5.8-8.3) 01/31/17 07:00 Albumin 3.7 g/dL (3.0-4.8) 01/31/17 07:00 Globulin 2.9 gm/dL 01/31/17 07:00 Albumin/Globulin Ratio 1.3 (1.1-1.8) 01/31/17 07:00 Triglycerides 36 mg/dL (35-160) 01/30/17 06:18 Cholesterol 117 mg/dL (130-200) L 01/30/17 06:18 LDL Cholesterol Direct 39 mg/dL (0-129) 01/30/17 06:18 HDL Cholesterol 55 mg/dL (29-60) 01/30/17 06:18 Urine Color Light yellow (YELLOW) 01/30/17 19:15 Urine Appearance Clear (CLEAR) 01/30/17 19:15 Urine pH 6.0 (4.7-8.0) 01/30/17 19:15 Ur Specific [place] 1.010 (1.005-1.035) 01/30/17 19:15 Urine Protein Negative mg/dL (<30 mg/dL) 01/30/17 19:15 Urine Glucose (UA) >=1000 mg/dL (NEGATIVE) 01/30/17 19:15 Urine Ketones Negative mg/dL (NEGATIVE) 01/30/17 19:15 Urine Blood Negative (NEGATIVE) 01/30/17 19:15 Urine Nitrate Negative (NEGATIVE) 01/30/17 19:15 Urine Bilirubin Negative (NEGATIVE) 01/30/17 19:15 Urine Urobilinogen 0.2 E.U./dL (<1 E.U./dL) 01/30/17 19:15 Ur Leukocyte Esterase Negative Samantha/uL (NEGATIVE) 01/30/17 19:15 Blood Type B POSITIVE 01/29/17 08:55 Blood Type Confirm B POSITIVE 01/29/17 10:46 Antibody Screen Negative 01/29/17 08:55 BBK History Checked No verified bt 01/29/17 08:55 Attending/Attestation - Attestation I have personally seen and examined this patient.: Yes I have fully participated in the care of the patient.: Yes I have reviewed all pertinent clinical information, including history, physical exam and plan: Yes Notes (Text): 01/31/17 17:05 46 year old male with past medical history of hypertension, diabetes and dyslipidemia who presented with LGIB/BRBPR. CT abd/pelvis was negative for acute findings. He was started on protonix. His hemoglobin remained stable. He was seen by GI and underwent EGD, flex sigmoidoscopy and colonoscopy with results as above. Case was discusssed with GI who recommended PPI and repeat EGD/colonoscopy in 2 months. Also recommended to hold NSAIDs, including naproxen. His A1c level was 12.8. Discussed with patient regarding starting insulin therapy which he refused. Recommended to optimize po medications as above for diabetes and diet modification as he is refusing insulin. Patient is discharged home today to follow up with his pmd. Follow up with GI for repeat EGD/colonoscopy in 2 months. Recommend to avoid NSAIDs, continue with PPI. Kimber Mello MD Hospitalist.
== END 2017-01-31 14:25 | disposition home or self-care (01) | DRG 379 ==
LOC: ED 07:49 → OBSVTOIN 12:23 → ERH 12:23 → 3RNO 15:10
PROVIDERS: ADMIT Internal Medicine; ATTEND Internal Medicine
PROC: 0DJD8ZZ Inspection of Lower Intestinal Tract, Via Natural or Artificial Opening Endoscopic (ICD-10-PCS; 2017-01-30)
PROC: 0DB68ZX Excision of Stomach, Via Natural or Artificial Opening Endoscopic, Diagnostic (ICD-10-PCS; principal; 2017-01-30 11:15)
PROC: 0DB58ZX Excision of Esophagus, Via Natural or Artificial Opening Endoscopic, Diagnostic (ICD-10-PCS; 2017-01-30 11:15)
PROC: 0DJD8ZZ Inspection of Lower Intestinal Tract, Via Natural or Artificial Opening Endoscopic (ICD-10-PCS; 2017-01-31)
DX: K92.1 Melena (principal); K25.9 Gastric ulcer, unspecified as acute or chronic, without hemorrhage or perforation; K31.7 Polyp of stomach and duodenum; K21.0 Gastro-esophageal reflux disease with esophagitis; K64.8 Other hemorrhoids; I10 Essential (primary) hypertension; E78.5 Hyperlipidemia, unspecified; E11.9 Type 2 diabetes mellitus without complications; F90.9 Attention-deficit hyperactivity disorder, unspecified type; M54.9 Dorsalgia, unspecified; G89.29 Other chronic pain; M54.2 Cervicalgia; Z79.84 Long term (current) use of oral hypoglycemic drugs; Z87.891 Personal history of nicotine dependence

== ENCOUNTER 2017-04-17 07:00 | Day surgery (SDC) | payer MEDICARE ==
[2017-04-10 12:15] VITALS: BMI 31.8
[2017-04-17 07:33] VITALS: TEMP 98.5
[2017-04-17] MEDS ORDERED: Simethicone 40 mg/0.6 ml Liquid (30 ml) ONE (08:19)
[2017-04-17] MEDS ORDERED: Lactated Ringer's 1,000 ML IV SCH (09:00)
[2017-04-17] MEDS ORDERED: Propofol 10 mg/ml Inj (20 ML) ONE ×2 (09:37→09:55)
[2017-04-17 10:59] VITALS: O2SAT 99
[2017-04-17 11:17] VITALS: BP 145/89; PULSE 64; RESP 16
== END 2017-04-17 11:51 | disposition home or self-care (01) ==
LOC: ENDO 07:00
PROVIDERS: ATTEND Internal Medicine Gastroenterology
DX: K57.30 Diverticulosis of large intestine without perforation or abscess without bleeding (principal); K62.1 Rectal polyp; K64.8 Other hemorrhoids; E11.9 Type 2 diabetes mellitus without complications; E78.5 Hyperlipidemia, unspecified; Z79.84 Long term (current) use of oral hypoglycemic drugs
CPT/HCPCS: 45380; 88305; 88312; 88342; J2001; J2704; J3010; J7030; J7120

== ENCOUNTER 2017-04-17 19:28 | Emergency (ER) | payer MEDICARE ==
[2017-04-17 19:29] VITALS: BMI 31.8
[2017-04-17 19:45] VITALS: O2SAT 99
[2017-04-17] MEDS ORDERED: Sodium Chloride 0.9% 1,000 ML IV STA (19:51)
[2017-04-17 20:44] LABS: BASO # 0.02 K/mm3 (0.0-2.0); BASO % 0.2 % (0.0-3.0); EOS # 0.1 (0.0-0.7); EOS % 1.1 % (1.5-5.0); GRAN # 8.64 (1.4-6.5); GRAN % 70.1 % (50.0-68.0); HEMOGLOBIN 12.9 g/dL (14.0-18.0); LYMPH # 2.7 (1.2-3.4); LYMPH % 21.9 % (22.0-35.0); MEAN CELL VOLUME 86.5 fl (80.0-105.0); MEAN CORPUSCULAR HEMOGLOBIN 28.9 pg (25.0-35.0); MEAN CORPUSCULAR HGB CONC 33.4 g/dl (31.0-37.0); MEAN PLATELET VOLUME 11.4 fl (7.0-11.0); MONO # 0.8 (0.1-0.6); MONO % 6.7 % (1.0-6.0); RBC 4.46 10^6/uL (3.5-6.1); RED CELL DISTRIBUTION WIDTH 14.2 % (11.5-14.5); WHITE BLOOD COUNT 12.3 10^3/ul (4.5-11.0)
[2017-04-17 20:49] LABS: URINE BILIRUBIN NEGATIVE (NEGATIVE); URINE BLOOD LARGE (NEGATIVE); URINE GLUCOSE (UA) NEGATIVE (NEGATIVE); URINE LEUKOCYTE ESTERASE NEGATIVE Leu/uL (NEGATIVE); URINE NITRATE NEGATIVE (NEGATIVE); URINE PROTEIN NEGATIVE mg/dL (<30 mg/dL); URINE UROBILINOGEN 0.2 E.U./dL (<1 E.U./dL)
[2017-04-17 20:54] LABS: ALB/GLOB RATIO 1.3 (1.1-1.8); ALBUMIN 4.1 g/dL (3.0-4.8); ALT/SGPT 36 U/L (7-56); AST/SGOT 24 U/L (17-59); BLOOD UREA NITROGEN 15 mg/dL (7-21); CALCIUM 9.7 mg/dL (8.4-10.5); GFR AFRICAN-AMERICAN > 60; GFR NON-AFRICAN AMERICAN > 60; LIPASE 67 U/L (23-300)
[2017-04-17 20:57] LABS: URINE APPEARANCE CLEAR (CLEAR); URINE BACTERIA TRACE (NEG); URINE COLOR YELLOW (YELLOW); URINE EPITHELIAL CELLS 0 - 2 /hpf (0-5); URINE RBC TNTC /hpf (0-2); URINE WBC 0 - 2 /hpf (0-6)
--- NOTE | 2017-04-17 21:50 | CT ---
EXAM: CT Abdomen and Pelvis Without Intravenous Contrast EXAM DATE/TIME: 04/17/2017 7:51 PM CLINICAL HISTORY: 46 years old, male; Pain; Abdominal pain; Flank; Left; Additional info: Left flank pain TECHNIQUE: Axial computed tomography images of the abdomen and pelvis without intravenous contrast. All CT scans at this facility use one or more dose reduction techniques, viz.: automated exposure control; ma/kV adjustment per patient size (including targeted exams where dose is matched to indication; i.e. head); or iterative reconstruction technique. Coronal and sagittal reformatted images were created and reviewed. COMPARISON: CT - ABD PELVIS W/O PO OR IV CONT 2017-01-29 15:01 FINDINGS: Lower thorax: Heart size is at the upper limits of normal. There is atelectasis at the lung bases. ABDOMEN: Liver: unremarkable Gallbladder and bile ducts: unremarkable Pancreas: Pancreas is mildly atrophic. Spleen: unremarkable Adrenals: unremarkable Kidneys and ureters: Right kidney is in the upper pelvis. Left kidney is in the flank. There is a nonobstructing left renal stone.There is no pelvocaliectasis or ureterectasis. Stomach and bowel: Stomach is incompletely distended. Rotation is normal. There is fluid and air throughout the small bowel. There is no obstruction. Ileocecal region is unremarkable. Appendix and terminal ileum are unremarkable. Colon is incompletely distended which limits evaluation. Appendix: See stomach and bowel PELVIS: Bladder: Bladder is almost empty. There is mild bladder wall thickening. Reproductive: Seminal vesicles and prostate are unremarkable. ABDOMEN and PELVIS: Intraperitoneal space: There is no significant fluid.There is no free air. Bones/joints: Bony structures are mildly osteopenic. There are degenerative changes. There are bridging osteophytes and syndesmophytes in the lower thoracic and upper lumbar spine. There is ankylosis of the sacroiliac joints. There is ankylosis of some of the costovertebral articulations and spinous processes. There is a mild convex right lumbar curve. Soft tissues: unremarkable Vasculature: There are vascular calcifications. Lymph nodes: There is shotty para-aortic adenopathy. There are mildly prominent fatty inguinal nodes. IMPRESSION: Nonobstructing left renal stone, no ureteral stones or hydronephrosis; right pelvic kidney; no acute solid visceral or bowel abnormality; probable ankylosing spondylitis; shotty para-aortic adenopathy Additional nonemergent findings as described above.
--- NOTE | 2017-04-17 22:20 | ED PDOC ---
Arrival/HPI - General Chief Complaint: Male Genitourinary Time Seen by Provider: 04/17/17 19:45 Historian: Patient - History of Present Illness Narrative History of Present Illness (Text): 04/17/17 22:19 46 year old male, whose past medical history includes hypertension and diabetes type 2, presents to the emergency department complaining of left flank for the past 2 days. Patient report no similar symptoms in the past. Patient denies any fevers, chills, chest pain, shortness of breath, loss of appetite, nausea, vomiting, diarrhea, back pain, neck pain, urinary/bowel changes, headache, dizziness, or any other complaint. PMD: Dr. Cale Garnett Time/Duration: Other (2 days) Symptom Course: Unchanged Activities at Onset: Light Context: Home Past Medical History - Provider Review Nursing Documentation Reviewed: Yes - Past History Past History: Non-Contributing - Infectious Disease Hx of Infectious Diseases: None - Tetanus Immunization Tetanus Immunization: Up to Date - Past Medical History Past Medical History: No Previous - Cardiac Hx Pacemaker: No - Pulmonary Hx Respiratory Disorders: No - Neurological Hx Paralysis: No - HEENT Hx HEENT Disorder: No - Renal Hx Renal Disorder: No - Endocrine/Metabolic Hx Endocrine Disorders: Yes Hx Diabetes Mellitus Type 1: Yes - Hematological/Oncological Hx Blood Transfusions: No - Integumentary Hx Dermatological Disorder: No - Musculoskeletal/Rheumatological Hx Musculoskeletal Disorders: No - Gastrointestinal Hx Gastrointestinal Disorders: No - Genitourinary/Gynecological Hx Genitourinary Disorders: No - Psychiatric Hx Emotional Abuse: No Hx Physical Abuse: No Hx Substance Use: No - Surgical History Hx Orthopedic Surgery: Yes (BILAT KNEE) - Anesthesia Hx Anesthesia Reactions: No Hx Malignant Hyperthermia: No - Suicidal Assessment Feels Threatened In Home Enviroment: No Family/Social History - Physician Review Nursing Documentation Reviewed: Yes Family/Social History: No Known Family HX Smoking Status: Light Smoker < 10 Cigarettes Daily Hx Alcohol Use: No Hx Substance Use: No Hx Substance Use Treatment: No Allergies/Home Meds Allergies/Adverse Reactions: Allergies No Known Allergies Allergy (Verified 01/29/17 11:28) Home Medications: Home Meds Medication Instructions Recorded Confirmed Glimepiride [Amaryl] 1 mg PO DAILY 08/03/16 04/17/17 Simvastatin 10 mg PO HS 01/29/17 04/17/17 Metformin ER [Glucophage XR] 500 mg PO BID MDD 500MG 04/10/17 04/17/17 Review of Systems - Physician Review All systems were reviewed & negative as marked: Yes - Review of Systems Constitutional: absent: Fevers, Other (Chills) Respiratory: absent: SOB Cardiovascular: absent: Chest Pain Gastrointestinal: Abdominal Pain (Flank pain). absent: Diarrhea, Nausea, Vomiting, Appetite Changes Genitourinary Male: absent: Hematuria Musculoskeletal: absent: Back Pain, Neck Pain Neurological: absent: Headache, Dizziness Physical Exam Vital Signs Reviewed: Yes Vital Signs Temp Pulse Resp BP Pulse Ox 04/17/17 22:43 98.8 F 64 20 174/83 H 99 04/17/17 19:42 98.2 F 77 18 129/85 99 Temperature: Afebrile Blood Pressure: Normal Pulse: Regular Respiratory Rate: Normal Appearance: Positive for: Well-Appearing, Non-Toxic, Comfortable Pain Distress: None Mental Status: Positive for: Alert and Oriented X 3 - Systems Exam Head: Present: Atraumatic, Normocephalic Pupils: Present: PERRL Extroacular Muscles: Present: EOMI Conjunctiva: Present: Normal Mouth: Present: Moist Mucous Membranes Neck: Present: Normal Range of Motion Respiratory/Chest: Present: Clear to Auscultation, Good Air Exchange. No: Respiratory Distress, Accessory Muscle Use Cardiovascular: Present: Regular Rate and Rhythm, Normal S1, S2. No: Murmurs Abdomen: Present: Normal Bowel Sounds. No: Tenderness, Distention, Peritoneal Signs Back: Present: CVA Tenderness (Left CVA Tenderness) Upper Extremity: Present: Normal Inspection. No: Cyanosis, Edema Lower Extremity: Present: Normal Inspection. No: Edema Neurological: Present: GCS=15, CN II-XII Intact, Speech Normal Skin: Present: Warm, Dry, Normal Color. No: Rashes Psychiatric: Present: Alert, Oriented x 3, Normal Insight, Normal Concentration Medical Decision Making ED Course and Treatment: 04/17/17 22:19 Impression: 46 year old male presents complaining of left flank pain that began 2 days ago. Plan: -- CT ABD & PELVIS w/p Contrast -- Labs -- IV Fluids -- Toradol -- Urine Culture -- Urinalysis w/ micro -- Reassess and disposition Prior Visits: Notes and results from previous visits were reviewed. Patient was last seen in the emergency department on 01/29/17 presents complaining of two episodes of bloody stool. Patient was admitted. Progress Notes: EXAM: CT Abdomen and Pelvis Without Intravenous Contrast Dictated and Authenticated by: Christelle Epperson MD 04/17/2017 9:50 PM IMPRESSION: Nonobstructing left renal stone, no ureteral stones or hydronephrosis; right pelvic kidney; no acute solid visceral or bowel abnormality; probable ankylosing spondylitis; shotty paraaortic adenopathy Additional nonemergent findings as described above. 04/17/17 22:43 On re-evaluation, patient feels better and is in no acute distress after medication. I have discussed the results and plan with the patient, who expresses understanding. Patient in agreement with plan to be discharged home. Patient is stable for discharge. Patient was instructed to follow up with PMD with referral for urologist or return if symptoms worsen or new concerning symptoms arise. - Lab Interpretations Lab Results: 04/17/17 20:21 04/17/17 20:21 Lab Results 04/17/17 20:42: Urine Color Yellow, Urine Appearance Clear, Urine pH 6.0, Ur Specific [place] 1.025, Urine Protein Negative, Urine Glucose (UA) Negative, Urine Ketones Negative, Urine Blood Large H, Urine Nitrate Negative, Urine Bilirubin Negative, Urine Urobilinogen 0.2, Ur Leukocyte Esterase Negative, Urine RBC Tntc, Urine WBC 0 - 2, Ur Epithelial Cells 0 - 2, Urine Bacteria Trace 04/17/17 20:21: Sodium 139, Potassium 3.8, Chloride 104, Carbon Dioxide 25, Anion Gap 14, BUN 15, Creatinine 0.7 L, Est GFR ( Amer) > 60, Est GFR ( Non-Af Amer) > 60, Random Glucose 115 H, Calcium 9.7, Total Bilirubin 0.4, AST 24, ALT 36, Alkaline Phosphatase 95, Total Protein 7.3, Albumin 4.1, Globulin 3.2, Albumin/Globulin Ratio 1.3, Lipase 67 04/17/17 20:21: WBC 12.3 H D, RBC 4.46, Hgb 12.9 L, Hct 38.6 L, MCV 86.5, MCH 28.9, MCHC 33.4, RDW 14.2, Plt Count 223, MPV 11.4 H, Gran % 70.1 H, Lymph % ( Auto) 21.9 L, Jay % (Auto) 6.7 H, Eos % (Auto) 1.1 L, Baso % (Auto) 0.2, Gran # 8.64 H, Lymph # 2.7, Jay # 0.8 H, Eos # 0.1, Baso # 0.02 I have reviewed the lab results: Yes - RAD Interpretation Radiology Orders: 04/17/17 19:51 ABD & PELVIS W/O PO OR IV CONT [CT] Stat - Medication Orders Current Medication Orders: Discontinued Medications Sodium Chloride (Sodium Chloride 0.9%) 1,000 mls @ 100 mls/hr IV .Q10H STA Stop: 04/18/17 05:50 Last Admin: 04/17/17 20:59 Dose: 100 mls/hr eMAR Start Stop Document 04/17/17 20:59 SS (Rec: 04/17/17 20:59 SS [id number]) Intravenous Solution Start Date 04/17/17 Start Time 20:59 Ketorolac Tromethamine (Toradol) 30 mg IVP STAT STA Stop: 04/17/17 19:52 Last Admin: 04/17/17 20:59 Dose: 30 mg MAR Pain Assessment Document 04/17/17 20:59 SS (Rec: 04/17/17 21:00 [id number] Pain Reassessment Is this a pain reassessment? No Sleep Is patient sleeping during reassessment? No Presence of Pain Presence of Pain Yes Pain Scale Used Pain Scale Used Numeric Location Left, Right or Bilateral Left IVP Administration Document 04/17/17 20:59 SS (Rec: 04/17/17 21:00 [id number] Charges for Administration # of IVP Administrations 1 - Scribe Statement The provider has reviewed the documentation as recorded by the Marshall Quinones Provider Scribe Attestation: All medical record entries made by the Marshall were at my direction and personally dictated by me. I have reviewed the chart and agree that the record accurately reflects my personal performance of the history, physical exam, medical decision making, and the department course for this patient. I have also personally directed, reviewed, and agree with the discharge instructions and disposition. Disposition/Present on Arrival - Present on Arrival Any Indicators Present on Arrival: No History of DVT/PE: No History of Uncontrolled Diabetes: Yes Urinary Catheter: No History of Decub. Ulcer: No History Surgical Site Infection Following: None - Disposition Have Diagnosis and Disposition been Completed?: Yes Diagnosis: Kidney stone Disposition: HOME/ ROUTINE Disposition Time: 21:50 Condition: GOOD Discharge Instructions (ExitCare): Kidney Stones (ED) Additional Instructions: Thank you for letting us take care of you today. The emergency medical care you received today was directed at your acute symptoms. If you were prescribed any medication, please fill it and take as directed. It may take several days for your symptoms to resolve. Return to the Emergency Department if your symptoms worsen, do not improve, or if you have any other problems. Please contact your doctor or call one of the physicians/clinics you have been referred to that are listed on the Patient Visit Information form that is included in your discharge packet. Bring any paperwork you were given at discharge with you along with any medications you are taking to your follow up visit. Our treatment cannot replace ongoing medical care by a primary care provider (PCP) outside of the emergency department. Thank you for allowing the [facility] team to be part of your care today. Follow up with your doctor in 3-4 days for re-evaluation and referral to a urologist. Prescriptions: Ibuprofen [Motrin] 600 mg PO Q6 PRN #20 tab PRN Reason: Pain, Moderate (4-7) Referrals: Cale Garnett MD [Primary Care Provider] - Follow up with primary Forms: [facility] ([place])
[2017-04-17 22:44] VITALS: BP 174/83; PULSE 64; RESP 20; TEMP 98.8
== END 2017-04-17 22:44 | disposition home or self-care (01) ==
LOC: ED 19:28
DX: N20.0 Calculus of kidney (principal)
CPT/HCPCS: 74176; 80053; 81001; 83690; 85025; 87086; 96374; 99283; J1885; J7040

== ENCOUNTER 2017-05-12 19:39 | Emergency (ER) | payer MEDICARE ==
[2017-05-12 19:39] VITALS: BMI 31.8
[2017-05-12] MEDS ORDERED: HYDROmorphone 1 mg/ml ISec SC STA (21:29)
--- NOTE | 2017-05-12 21:42 | ED PDOC ---
Arrival/HPI - General Chief Complaint: Groin Pain Time Seen by Provider: 05/12/17 20:47 Historian: Patient - History of Present Illness Narrative History of Present Illness (Text): 05/12/17 20:55 A 46 year old male, whose past medical history includes hypertension and diabetes type 2, presents to the emergency department complaining of right lower buttock pain radiating to thigh groin that began today. Patient reports pain worsens with movement and is able to ambulate without much difficulty. States experiencing similar symptom in the past and was given pain medication with relief. Patient denies any trauma, urinary symptoms, fever, chills, change in bowel/urinary habits, or any other complaints. PMD: Dr. Cale Garnett Time/Duration: Other (began today) Symptom Onset: Sudden Symptom Course: Unchanged Past Medical History - Provider Review Nursing Documentation Reviewed: Yes - Past History Past History: Non-Contributing - Infectious Disease Hx of Infectious Diseases: None - Tetanus Immunization Tetanus Immunization: Up to Date - Past Medical History Past Medical History: No Previous - Cardiac Hx Cardiac Disorders: Yes Hx Hypertension: Yes Hx Pacemaker: No - Pulmonary Hx Respiratory Disorders: No - Neurological Hx Paralysis: No - HEENT Hx HEENT Disorder: No - Renal Hx Renal Disorder: No - Endocrine/Metabolic Hx Endocrine Disorders: Yes Hx Diabetes Mellitus Type 1: Yes - Hematological/Oncological Hx Blood Transfusions: No - Integumentary Hx Dermatological Disorder: No - Musculoskeletal/Rheumatological Hx Musculoskeletal Disorders: No - Gastrointestinal Hx Gastrointestinal Disorders: Yes Hx Gastroesophageal Reflux: Yes - Genitourinary/Gynecological Hx Genitourinary Disorders: No - Psychiatric Hx Emotional Abuse: No Hx Physical Abuse: No Hx Substance Use: No - Surgical History Hx Orthopedic Surgery: Yes (BILAT KNEE) - Anesthesia Hx Anesthesia: Yes Hx Anesthesia Reactions: No Hx Malignant Hyperthermia: No - Suicidal Assessment Feels Threatened In Home Enviroment: No Family/Social History - Physician Review Nursing Documentation Reviewed: Yes Family/Social History: No Known Family HX Smoking Status: Light Smoker < 10 Cigarettes Daily Hx Alcohol Use: No Hx Substance Use: No Hx Substance Use Treatment: No Allergies/Home Meds Allergies/Adverse Reactions: Allergies No Known Allergies Allergy (Verified 05/12/17 19:56) Home Medications: Home Meds Medication Instructions Recorded Confirmed Glimepiride [Amaryl] 1 mg PO DAILY 08/03/16 05/12/17 Metformin ER [Glucophage XR] 500 mg PO BID MDD 500MG 04/10/17 05/12/17 Enalapril Maleate [Vasotec] 5 mg PO DAILY 05/12/17 05/12/17 Review of Systems - Physician Review All systems were reviewed & negative as marked: Yes - Review of Systems Constitutional: absent: Fevers, Night Sweats, Other (denies any trauma) Gastrointestinal: absent: Stool Changes Genitourinary Male: absent: Urinary Output Changes Musculoskeletal: Other (lower right buttock pain radiating down to thigh groin) Physical Exam Vital Signs Reviewed: Yes Vital Signs Temp Pulse Resp BP Pulse Ox 05/13/17 00:00 98.5 F 78 16 134/76 99 05/12/17 22:00 98.6 F 73 16 128/76 100 05/12/17 20:02 98.6 F 80 17 137/84 98 Temperature: Afebrile Blood Pressure: Normal Pulse: Regular Respiratory Rate: Normal Appearance: Positive for: Well-Appearing Pain Distress: Mild Mental Status: Positive for: Alert and Oriented X 3 - Systems Exam Pupils: Present: PERRL Extroacular Muscles: Present: EOMI Conjunctiva: Present: Normal Mouth: Present: Moist Mucous Membranes Pharnyx: Present: Normal Neck: Present: Normal Range of Motion Respiratory/Chest: Present: Clear to Auscultation, Good Air Exchange. No: Respiratory Distress, Accessory Muscle Use Cardiovascular: Present: Regular Rate and Rhythm, Normal S1, S2. No: Murmurs Abdomen: Present: Normal Bowel Sounds. No: Tenderness, Distention, Peritoneal Signs Genitourinary Male: Present: Other (testes distended bilaterally). No: Hernias Back: No: Paraspinal Tenderness, Other (no dorsal spinal tenderness) Lower Extremity: Present: Other (right leg discomfort with right straight leg raising) Medical Decision Making ED Course and Treatment: 05/12/17 21:00 Impression: 46 year old male with right lower buttock pain radiating down to thigh groin. Physical exam shows right leg discomfort with right straight leg raise; back: no dorsal spinal tenderness, no paraspinal tenderness; genitalia: testes distended bilaterally, no hernias. Plan: -- Morphine -- Reassess and disposition Prior Visits: Notes and results from previous visits were reviewed. Patient was last seen in the emergency department on 04/17/2017 for left flank pain. Patient was d/c home. Progress Notes: - Medication Orders Current Medication Orders: Discontinued Medications Morphine Sulfate (Morphine) 6 mg IM STAT STA Stop: 05/12/17 21:43 Last Admin: 05/12/17 22:19 Dose: 6 mg MAR Pain Assessment Document 05/12/17 22:19 AB (Rec: 05/12/17 22:20 AB [email or web address] Pain Reassessment Is this a pain reassessment? Yes Sleep Is patient sleeping during reassessment? No Presence of Pain Presence of Pain Yes Pain Scale Used Pain Scale Used Numeric Location Left, Right or Bilateral Right Upper or Lower Upper Description Description Constant Intensity of Pain at present 10 Pain Behavior Moaning Aggravating Factors ADL's Alleviating Factors/Management Medication Techniques Alleviating Factors Medication IM Administration Charges Document 05/12/17 22:19 AB (Rec: 05/12/17 22:20 AB [email or web address] Injection Site MAR Injection Site Left Deltoid Charges for Administration # of IM Administrations 1 - Scribe Statement The provider has reviewed the documentation as recorded by the Marshall Melendez Provider Scribe Attestation: All medical record entries made by the Olimpiaibted were at my direction and personally dictated by me. I have reviewed the chart and agree that the record accurately reflects my personal performance of the history, physical exam, medical decision making, and the department course for this patient. I have also personally directed, reviewed, and agree with the discharge instructions and disposition. Disposition/Present on Arrival - Present on Arrival Any Indicators Present on Arrival: No History of DVT/PE: No History of Uncontrolled Diabetes: Yes Urinary Catheter: No History of Decub. Ulcer: No History Surgical Site Infection Following: None - Disposition Have Diagnosis and Disposition been Completed?: Yes Diagnosis: Sciatica Disposition: HOME/ ROUTINE Disposition Time: 00:57 Patient Plan: Discharge Condition: GOOD Discharge Instructions (ExitCare): Sciatica (DC) Additional Instructions: Take meds as prescribed/rest/no strenuous physical activity/follow up with your doctor this week Prescriptions: oxyCODONE/Acetaminophen [Percocet 5/325 mg Tab] 1 ea PO Q6 PRN #16 tab PRN Reason: Pain, Moderate (4-7) Referrals: Cale Garnett MD [Primary Care Provider] - Follow up with primary Forms: [employer] ([place])
[2017-05-13 00:42] VITALS: BP 134/76; PULSE 78; RESP 16; TEMP 98.5; O2SAT 99
[2017-05-13] MEDS ORDERED: Oxycodone/Acetaminophen 5/325 mg Tab PO STA (00:59)
== END 2017-05-13 01:17 | disposition home or self-care (01) ==
LOC: ED 19:39
DX: M54.30 Sciatica, unspecified side (principal); E11.9 Type 2 diabetes mellitus without complications; I10 Essential (primary) hypertension; F17.210 Nicotine dependence, cigarettes, uncomplicated
CPT/HCPCS: 96372; 99283; J2270

== ENCOUNTER 2017-08-21 20:51 | Emergency (ER) | payer MEDICARE ==
[2017-08-21 20:51] VITALS: BMI 31.8
[2017-08-21 21:34] VITALS: TEMP 98.8
--- NOTE | 2017-08-21 21:34 | ED PDOC ---
Arrival/HPI - General Chief Complaint: Finger,Hand,&Wrist Time Seen by Provider: 08/21/17 21:20 Historian: Patient - History of Present Illness Narrative History of Present Illness (Text): 08/21/17 21:25 46yr old male presents today with right wrist pain since today. pt denies trauma or injury. pt denies dizziness weakness or tingling in the extremity. Patient denies fevers or chills no medications have been taken for pain at home. Patient states the pain is worse over the dorsal aspect of the wrist and worse with movement. Patient denies radiation of pain into the elbow. No other complaints Past Medical History - Provider Review Nursing Documentation Reviewed: Yes - Travel History Have you recently traveled outside [place] w/in the past 3 mons?: No - Past History Past History: Non-Contributing - Infectious Disease Hx of Infectious Diseases: None - Tetanus Immunization Tetanus Immunization: Up to Date - Past Medical History Past Medical History: No Previous - Cardiac Hx Cardiac Disorders: Yes Hx Hypertension: Yes Hx Pacemaker: No - Pulmonary Hx Respiratory Disorders: No - Neurological Hx Paralysis: No - HEENT Hx HEENT Disorder: No - Renal Hx Renal Disorder: No - Endocrine/Metabolic Hx Endocrine Disorders: Yes Hx Diabetes Mellitus Type 1: Yes - Hematological/Oncological Hx Blood Transfusions: No - Integumentary Hx Dermatological Disorder: No - Musculoskeletal/Rheumatological Hx Musculoskeletal Disorders: No - Gastrointestinal Hx Gastrointestinal Disorders: Yes Hx Gastroesophageal Reflux: Yes - Genitourinary/Gynecological Hx Genitourinary Disorders: No - Psychiatric Hx Emotional Abuse: No Hx Physical Abuse: No Hx Substance Use: No - Surgical History Hx Orthopedic Surgery: Yes (BILAT KNEE) - Anesthesia Hx Anesthesia: Yes Hx Anesthesia Reactions: No Hx Malignant Hyperthermia: No - Suicidal Assessment Feels Threatened In Home Enviroment: No Family/Social History - Physician Review Nursing Documentation Reviewed: Yes Family/Social History: Unknown Family HX Smoking Status: Light Smoker < 10 Cigarettes Daily Hx Alcohol Use: No Hx Substance Use: No Hx Substance Use Treatment: No Allergies/Home Meds Allergies/Adverse Reactions: Allergies No Known Allergies Allergy (Verified 08/21/17 21:04) Home Medications: Home Meds Medication Instructions Recorded Confirmed Glimepiride [Amaryl] 1 mg PO DAILY 08/03/16 05/12/17 MetFORMIN ER [Glucophage XR] 500 mg PO BID MDD 500MG 04/10/17 05/12/17 Enalapril Maleate [Vasotec] 5 mg PO DAILY 05/12/17 05/12/17 Review of Systems - Review of Systems Constitutional: absent: Fatigue, Fevers Respiratory: absent: SOB, Cough Cardiovascular: absent: Chest Pain, Palpitations Gastrointestinal: absent: Abdominal Pain, Nausea, Vomiting Musculoskeletal: Arthralgias Skin: absent: Rash, Pruritis Neurological: absent: Headache, Dizziness Psychiatric: absent: Anxiety, Depression Physical Exam Vital Signs Reviewed: Yes Vital Signs Temp Pulse Resp BP Pulse Ox 08/21/17 21:06 98.8 F 90 16 150/75 98 Temperature: Afebrile Blood Pressure: Normal Pulse: Regular Respiratory Rate: Normal Appearance: Positive for: Well-Appearing, Non-Toxic, Comfortable Pain Distress: None Mental Status: Positive for: Alert and Oriented X 3 - Systems Exam Head: Present: Atraumatic Mouth: Present: Moist Mucous Membranes Neck: Present: Normal Range of Motion Respiratory/Chest: Present: Clear to Auscultation, Good Air Exchange. No: Respiratory Distress, Accessory Muscle Use Cardiovascular: Present: Regular Rate and Rhythm, Normal S1, S2. No: Murmurs Upper Extremity: Present: Normal ROM, NORMAL PULSES, Tenderness (right wrist; full rom of wrist; no edema, no erythema; no ecchymosis; minimal tenderness over dorsal aspect of wrist, no snuff box tenderness, no warmth. ), Neurovascularly Intact, Capillary Refill < 2s. No: Swelling, Erythema, Deformity Neurological: Present: GCS=15, Speech Normal Skin: Present: Warm, Dry, Normal Color Psychiatric: Present: Alert, Oriented x 3 Medical Decision Making ED Course and Treatment: 08/21/17 21:38 Patient nontoxic well-appearing in no distress with stable vital signs X-rays of the right wrist: No fracture Tylenol by mouth Patient placed in volar Velcro splint I discussed all results with patient advised to followup with the orthopedist for the next 2 days. Return if symptoms worsen persist or new symptoms develop i advised the patient that although the xrays show no fracture; there is still a possibility for ligamentous or tendon injury the patient must see the orthopedist for further evaluation. Patient verbalizes understanding of discharge instructions and need for immediate followup. all aspects of this case were discussed the attending of record. Impression: wrist pain tylenol every 4 hours as needed for pain. Rest, ice, compression, elevation Followup with the orthopedist within the next 2 days Followup with primary care physician within the next 2 days Return if any other concerning symptoms develop - RAD Interpretation Radiology Orders: 08/21/17 21:20 WRIST, RIGHT 3 VIEWS [RAD] Stat - Medication Orders Current Medication Orders: Acetaminophen (Tylenol 325mg Tab) 975 mg PO STAT STA Stop: 08/21/17 21:24 Disposition/Present on Arrival - Present on Arrival Any Indicators Present on Arrival: Yes History of DVT/PE: No History of Uncontrolled Diabetes: Yes Urinary Catheter: No History of Decub. Ulcer: No History Surgical Site Infection Following: None - Disposition Have Diagnosis and Disposition been Completed?: Yes Diagnosis: Wrist pain Disposition: HOME/ ROUTINE Disposition Time: 21:39 Patient Plan: Discharge Condition: GOOD Discharge Instructions (ExitCare): Common Wrist Injuries Additional Instructions: tylenol every 4 hours as needed for pain. Rest, ice, compression, elevation Followup with the orthopedist within the next 2 days Followup with primary care physician within the next 2 days Return if any other concerning symptoms develop Referrals: Guzman Patino MD [Staff Provider] - Follow up with primary Bebe Riddle MD [Staff Provider] - Follow up with primary Forms: [facility] ([place]), WORK NOTE
[2017-08-22 02:20] VITALS: BP 141/73; PULSE 88; RESP 24; O2SAT 100
--- NOTE | 2017-08-22 10:53 | RAD ---
PROCEDURE: Right Wrist Radiographs. HISTORY: Wrist injury COMPARISON: None. FINDINGS: BONES: No evidence of acute displaced fracture nor dislocation. The osseous structures appear intact. JOINTS: No significant osteoarthritis SOFT TISSUES: Normal. OTHER FINDINGS: None. IMPRESSION: No evidence of acute displaced fracture nor dislocation. If symptoms persist or occult fracture suspected clinically recommend repeat radiographs in 5-10 days as most fractures should become radiographically evident
== END 2017-08-21 21:53 | disposition home or self-care (01) ==
LOC: ED 20:51
DX: M25.531 Pain in right wrist (principal)

== ENCOUNTER 2017-11-11 17:42 | Emergency (ER) | payer MEDICARE ==
[2017-11-11 17:45] VITALS: BMI 32.8
--- NOTE | 2017-11-11 18:24 | ED PDOC ---
Arrival/HPI - General Historian: Patient - History of Present Illness Time/Duration: 24 hours Symptom Onset: Gradual Symptom Course: Unchanged Quality: Aching <Puneet Jones - Last Filed: 11/11/17 18:38> <Nirmal Hinds - Last Filed: 11/11/17 18:45> - General Chief Complaint: Eye Problem Time Seen by Provider: 11/11/17 17:48 - History of Present Illness Narrative History of Present Illness (Text): 11/11/17 18:21 Patient is a 47 year old male with PMH of HLD, DM2, and HTN who presents to ED with R eye pain and redness. He reports that yesterday he was sweeping the floor in his house when he felt some debris go into his R eye. He tried OTC visine drops which did not provide any relief. He denies any change in visual acuity in the eye but reports some minor retroorbital pain. He admits to a minor BANKS but denies blurred vision, diploplia, fever, chills, CP, SOB, or any other symptoms. (Puneet Jones) Past Medical History - Provider Review Nursing Documentation Reviewed: Yes - Travel History Have you recently traveled outside [place] w/in the past 3 mons?: No - Past History Past History: Non-Contributing - Infectious Disease Hx of Infectious Diseases: None - Tetanus Immunization Tetanus Immunization: Up to Date - Past Medical History Past Medical History: No Previous - Cardiac Hx Cardiac Disorders: Yes Hx Hypertension: Yes Hx Pacemaker: No - Pulmonary Hx Respiratory Disorders: No - Neurological Hx Paralysis: No - HEENT Hx HEENT Disorder: No - Renal Hx Renal Disorder: No - Endocrine/Metabolic Hx Endocrine Disorders: Yes Hx Diabetes Mellitus Type 2: Yes - Hematological/Oncological Hx Blood Transfusions: No - Integumentary Hx Dermatological Disorder: No - Musculoskeletal/Rheumatological Hx Musculoskeletal Disorders: No - Gastrointestinal Hx Gastrointestinal Disorders: Yes Hx Gastroesophageal Reflux: Yes - Genitourinary/Gynecological Hx Genitourinary Disorders: No - Psychiatric Hx Emotional Abuse: No Hx Physical Abuse: No Hx Substance Use: No - Surgical History Hx Orthopedic Surgery: Yes (BILAT KNEE) - Anesthesia Hx Anesthesia: Yes Hx Anesthesia Reactions: No Hx Malignant Hyperthermia: No - Suicidal Assessment Feels Threatened In Home Enviroment: No <Puneet Jones - Last Filed: 11/11/17 18:38> Family/Social History - Physician Review Nursing Documentation Reviewed: Yes Family/Social History: No Known Family HX Smoking Status: Light Smoker < 10 Cigarettes Daily Hx Alcohol Use: No Hx Substance Use: No Hx Substance Use Treatment: No <JonesPuneet - Last Filed: 11/11/17 18:38> Allergies/Home Meds <RobertPuneet - Last Filed: 11/11/17 18:38> <Antonio Hindsanca Hall - Last Filed: 11/11/17 18:45> Allergies/Adverse Reactions: Allergies No Known Allergies Allergy (Verified 08/21/17 21:04) Home Medications: Home Meds Medication Instructions Recorded Confirmed Glimepiride [Amaryl] 4 mg PO DAILY 08/03/16 11/11/17 MetFORMIN ER [Glucophage XR] 500 mg PO DAILY MDD 500MG 04/10/17 11/11/17 Losartan [Cozaar] 1 tab PO DAILY 11/11/17 11/11/17 Simvastatin [Zocor] 1 tab PO HS 11/11/17 11/11/17 Review of Systems - Physician Review All systems were reviewed & negative as marked: Yes - Review of Systems Constitutional: absent: Fatigue, Fevers Eyes: Eye Pain. absent: Vision Changes, Photophobia ENT: absent: Hearing Changes, Sore Throat Respiratory: absent: SOB, Cough Cardiovascular: absent: Chest Pain, PHILLIPS Gastrointestinal: absent: Abdominal Pain, Nausea, Vomiting Genitourinary Male: absent: Dysuria, Frequency Musculoskeletal: absent: Arthralgias Skin: absent: Rash, Pruritis Neurological: absent: Headache Endocrine: absent: Diaphoresis Hemo/Lymphatic: absent: Adenopathy Psychiatric: absent: Anxiety, Depression <JonesPuneet - Last Filed: 11/11/17 18:38> Physical Exam Vital Signs Reviewed: Yes Temperature: Afebrile Blood Pressure: Hypertensive Pulse: Regular Respiratory Rate: Normal Appearance: Positive for: Well-Appearing, Non-Toxic Pain Distress: None Mental Status: Positive for: Alert and Oriented X 3 - Systems Exam Head: Present: Atraumatic Pupils: Present: PERRL Extroacular Muscles: Present: EOMI Conjunctiva: Present: Injected, Other (subconjunctival hemorrhage. Wood lamp exam revealed minor corneal abrasion at 7 o'clock position. Visual acuity performed at bedside OD 20/30, OS 20/25.). No: Icteric Ears: Present: Normal Mouth: Present: Moist Mucous Membranes Pharnyx: Present: Normal. No: ERYTHEMA, EXUDATE Nose (External): Present: Atraumatic Neck: Present: Normal Range of Motion. No: JVD Respiratory/Chest: Present: Clear to Auscultation. No: Wheezes, Rales, Rhonchi Cardiovascular: Present: Regular Rate and Rhythm, Normal S1, S2. No: Murmurs, Rub, Gallop Abdomen: No: Tenderness, Rebound, Guarding Upper Extremity: Present: Normal Inspection. No: Cyanosis Lower Extremity: Present: Normal Inspection. No: Edema Neurological: Present: Speech Normal Skin: Present: Warm, Dry Psychiatric: Present: Alert, Oriented x 3 <Puneet Jones - Last Filed: 11/11/17 18:38> Vital Signs Temp Pulse Resp BP Pulse Ox 11/11/17 18:40 98.0 F 84 19 98 11/11/17 18:34 85 18 154/95 H 98 11/11/17 17:50 98.5 F 87 18 155/101 H 96 Medical Decision Making <Puneet Jones - Last Filed: 11/11/17 18:38> <Nirmal Hinds - Last Filed: 11/11/17 18:45> ED Course and Treatment: 11/11/17 18:25 -Wood lamp exam of R eye revealed a minor corneal abrasion on R eye -Following wood lamp exam, eye was irrigated with 200 cc of NS -No debris was seen following irrigation -Will plan on discharge with erythromycin ointment TID (Puneet Jones) 11/11/17 18:42 47 yo male with right eye pain as described in resident note. I agree with resident history and physical, assessment and plan. Wood lamp exam and visual acuity was done by me and resident. See resident documentation. Patient was advised to take antibiotics as prescribed. He was initially given erythromycin ointment RX but he wanted the Cipro drops. He was given the Cipro drop prescription instead. Patient was instructed to follow up with Opthamology Dr. Valladares as instruction and contract info was given in discharge papers. ( Niraml Hinds) - Medication Orders Current Medication Orders: Discontinued Medications Acetaminophen (Tylenol 325mg Tab) 650 mg PO STAT STA Stop: 11/11/17 18:19 Last Admin: 11/11/17 18:36 Dose: Disposition/Present on Arrival - Present on Arrival Any Indicators Present on Arrival: Yes History of DVT/PE: No History of Uncontrolled Diabetes: Yes Urinary Catheter: No History of Decub. Ulcer: No History Surgical Site Infection Following: None - Disposition Have Diagnosis and Disposition been Completed?: Yes Disposition Time: 18:27 Patient Plan: Discharge <Puneet Jones - Last Filed: 11/11/17 18:38> - Present on Arrival Any Indicators Present on Arrival: Yes - Disposition Have Diagnosis and Disposition been Completed?: Yes <Nirmal Hinds - Last Filed: 11/11/17 18:45> - Disposition Diagnosis: Corneal abrasion, Pain, eye, right Disposition: HOME/ ROUTINE Condition: GOOD Discharge Instructions (ExitCare): Corneal Abrasion (DC) Additional Instructions: VALENTINO HERRERA, thank you for letting us take care of you today. Your provider was Nirmal Hinds DO and you were treated for Corneal Abrasion. The emergency medical care you received today was directed at your acute symptoms. If you were prescribed any medication, please fill it and take as directed. It may take several days for your symptoms to resolve. Return to the Emergency Department if your symptoms worsen, do not improve, or if you have any other problems. Please contact your doctor or call one of the physicians/clinics you have been referred to that are listed on the Patient Visit Information form that is included in your discharge packet. Bring any paperwork you were given at discharge with you along with any medications you are taking to your follow up visit. Our treatment cannot replace ongoing medical care by a primary care provider outside of the emergency department. Thank you for allowing the [facility] team to be part of your care today. If you had an X-Ray or CT scan: A Radiologist will review the ED reading if any change in treatment is needed we will contact you. If you had a blood, urine, or wound culture: It will take several days for the results, if any change in treatment is needed we will contact you. If you had an STI test: It will take 48 hours for the results. Please call after 1 week if you have not heard back. Prescriptions: Ciprofloxacin 0.3% [Ciloxan 0.3% Ophth SOLN] 2 drop OD Q6H #1 bottle Referrals: Philip Valladares [Staff Provider] - Follow up with primary Forms: [email or web address] ([place]), WORK NOTE
[2017-11-11 18:36] VITALS: BP 154/95; O2SAT 98
[2017-11-11 18:40] VITALS: PULSE 84; RESP 19; TEMP 98
== END 2017-11-11 18:40 | disposition home or self-care (01) ==
LOC: ED 17:42
DX: H57.11 Ocular pain, right eye (principal); S05.01XA Injury of conjunctiva and corneal abrasion without foreign body, right eye, initial encounter; X58.XXXA Exposure to other specified factors, initial encounter; Y93.E5 Activity, floor mopping and cleaning; Y92.009 Unspecified place in unspecified non-institutional (private) residence as the place of occurrence of the external cause; E78.5 Hyperlipidemia, unspecified; E11.9 Type 2 diabetes mellitus without complications; I10 Essential (primary) hypertension; F17.210 Nicotine dependence, cigarettes, uncomplicated

== ENCOUNTER 2017-11-14 18:03 | Emergency (ER) | payer MEDICARE ==
[2017-11-14 18:04] VITALS: BMI 32.8
[2017-11-14 18:24] VITALS: PULSE 81; TEMP 98.1
[2017-11-14] MEDS ORDERED: Tobramycin 0.3% OPH OINT OD STA (19:34)
--- NOTE | 2017-11-14 19:37 | ED PDOC ---
Arrival/HPI - General Chief Complaint: Eye Problem Time Seen by Provider: 11/14/17 18:07 Historian: Patient - History of Present Illness Narrative History of Present Illness (Text): 11/14/17 19:36 47-year-old male presents today with continued eye pain and redness to the right eye. Patient states on 11/11 he was sweeping and felt as if something went into his eyes. Patient states he was seen in the emergency room and they told him he had a scratch on his side. Patient states he has been using Cipro eyedrops without improvement in his symptoms. Patient states he is having a burning sensation and foreign body sensation in the eye. He denies headaches dizziness or weakness. He denies chest pain or shortness of breath. Patient describes photophobia. No other complaints Past Medical History - Provider Review Nursing Documentation Reviewed: Yes - Travel History Have you recently traveled outside [place] w/in the past 3 mons?: No - Past History Past History: Non-Contributing - Infectious Disease Hx of Infectious Diseases: None - Tetanus Immunization Tetanus Immunization: Up to Date - Past Medical History Past Medical History: No Previous - Cardiac Hx Cardiac Disorders: Yes Hx Hypertension: Yes - Pulmonary Hx Respiratory Disorders: No - Neurological Hx Paralysis: No - HEENT Hx HEENT Disorder: No - Renal Hx Renal Disorder: No - Endocrine/Metabolic Hx Endocrine Disorders: Yes Hx Diabetes Mellitus Type 2: Yes - Hematological/Oncological Hx Blood Transfusions: No - Integumentary Hx Dermatological Disorder: No - Musculoskeletal/Rheumatological Hx Musculoskeletal Disorders: No - Gastrointestinal Hx Gastrointestinal Disorders: Yes Hx Gastroesophageal Reflux: Yes - Genitourinary/Gynecological Hx Genitourinary Disorders: No - Psychiatric Hx Emotional Abuse: No Hx Physical Abuse: No Hx Substance Use: No - Surgical History Hx Orthopedic Surgery: Yes (BILAT KNEE) - Anesthesia Hx Anesthesia: Yes Hx Anesthesia Reactions: No Hx Malignant Hyperthermia: No - Suicidal Assessment Feels Threatened In Home Enviroment: No Family/Social History - Physician Review Nursing Documentation Reviewed: Yes Family/Social History: Unknown Family HX Smoking Status: Light Smoker < 10 Cigarettes Daily Hx Alcohol Use: No Hx Substance Use: No Hx Substance Use Treatment: No Allergies/Home Meds Allergies/Adverse Reactions: Allergies No Known Allergies Allergy (Verified 11/14/17 18:23) Home Medications: Home Meds Medication Instructions Recorded Confirmed Glimepiride [Amaryl] 4 mg PO DAILY 08/03/16 11/14/17 MetFORMIN ER [Glucophage XR] 500 mg PO DAILY MDD 500MG 04/10/17 11/14/17 Losartan [Cozaar] 1 tab PO DAILY 11/11/17 11/14/17 Simvastatin [Zocor] 1 tab PO HS 11/11/17 11/14/17 Review of Systems - Review of Systems Constitutional: absent: Fatigue, Fevers Eyes: Photophobia, Other (Fb sensation in eye). absent: Vision Changes Respiratory: absent: SOB, Cough Cardiovascular: absent: Chest Pain, Palpitations Gastrointestinal: absent: Abdominal Pain, Nausea, Vomiting Musculoskeletal: absent: Arthralgias, Back Pain, Neck Pain Skin: absent: Rash, Pruritis Neurological: absent: Headache, Dizziness Psychiatric: absent: Anxiety, Depression Physical Exam Vital Signs Reviewed: Yes Vital Signs Temp Pulse Resp BP Pulse Ox 11/14/17 18:20 98.1 F 81 18 165/104 H 96 Temperature: Afebrile Blood Pressure: Hypertensive Pulse: Regular Respiratory Rate: Normal Appearance: Positive for: Well-Appearing, Non-Toxic, Comfortable Pain Distress: None Mental Status: Positive for: Alert and Oriented X 3 - Systems Exam Head: Present: Atraumatic. No: Tenderness, Contusion, Swelling, Ecchymosis, Abrasion, Laceration Pupils: Present: PERRL. No: Sluggish, Pinpoint Extroacular Muscles: Present: EOMI Conjunctiva: Present: Injected (+ eye conjunctival injection; there is NO corneal abrasion or ulceration noted; using william pen; pressure is 17 bilaterally. no hyphema; no visualized FB. no periorbital edema, erythema or ecchymosis; no discharge noted. ) Mouth: Present: Moist Mucous Membranes Respiratory/Chest: Present: Clear to Auscultation Cardiovascular: Present: Regular Rate and Rhythm Medical Decision Making ED Course and Treatment: 11/14/17 19:43 Patient is nontoxic well appearing in no distress Visual acuity within normal limits 20/25 bilaterally. right eye; +Conjunctival injection noted, PERRLA, extraocular muscles intact. no corneal abrasion or ulceration noted; no FB. pressure is 17 in eyes bilaterally. eye was flushed with copious amounts of NS; pt reassessment; eye is feeling better. pt in no distress. advised patient of elevated blood pressure; pt states he didnt take his medication today; advised patient to take bp medications. will change abx to tobramycin ointment; pt has scheduled appointment with eye doctor on thursday (2 days). stressed importance of f/u with eye doctor. advised using abx ointment. advised immediate return if symptoms worsen, persist or if new symptoms develop. Patient verbalizes understanding of discharge instructions and need for immediate followup. all aspects of this case were discussed the attending of record. Impression: eye irritation, fb sensation, conjunctivitis tobramycin ointment; apply 4 times daily to affected eye Follow up with the eye doctor within the next 2 days return if symptoms worsen,persist or if new symptoms develop. Reassessment Condition: Re-examined, Improved - Medication Orders Current Medication Orders: Discontinued Medications Tobramycin Sulfate (Tobrex 0.3% Ophth Oint) 1 appl OD STAT STA Stop: 11/14/17 19:35 Last Admin: 11/14/17 19:55 Dose: 0.3 % Disposition/Present on Arrival - Present on Arrival Any Indicators Present on Arrival: Yes History of DVT/PE: No History of Uncontrolled Diabetes: Yes Urinary Catheter: No History of Decub. Ulcer: No History Surgical Site Infection Following: None - Disposition Have Diagnosis and Disposition been Completed?: Yes Diagnosis: Eye irritation, Conjunctivitis Disposition: HOME/ ROUTINE Disposition Time: 19:33 Patient Plan: Discharge Patient Problems: Current Active Problems Problem Status Onset Conjunctivitis Acute Eye irritation Acute Condition: GOOD Additional Instructions: tobramycin ointment; apply 4 times daily to affected eye Follow up with the eye doctor within the next 2 days return if symptoms worsen,persist or if new symptoms develop. Prescriptions: Tobramycin 0.3% [Tobrex 0.3% Ophth Oint] 1 appl OD TID #1 tube Referrals: Cale Garnett MD [Primary Care Provider] - Follow up with primary Philip Valladares [Staff Provider] - Follow up with primary Forms: [employer] ([place]), WORK NOTE
[2017-11-14 19:57] VITALS: BP 165/98; RESP 17; O2SAT 100
== END 2017-11-14 19:56 | disposition home or self-care (01) ==
LOC: ED 18:03
DX: H10.9 Unspecified conjunctivitis (principal); E11.65 Type 2 diabetes mellitus with hyperglycemia; I10 Essential (primary) hypertension; F17.210 Nicotine dependence, cigarettes, uncomplicated

== ENCOUNTER 2017-11-22 00:38 | Emergency (ER) | payer MEDICARE ==
[2017-11-22 01:03] VITALS: BMI 38.5
--- NOTE | 2017-11-22 01:04 | ED PDOC ---
Arrival/HPI - General Time Seen by Provider: 11/22/17 00:57 - History of Present Illness Narrative History of Present Illness (Text): 11/22/17 01:46 Patient is a 47 year old male presenting with right eye pain. Patient was sweeping 2 weeks ago where something seferino into his eye. Patient was in the ED multiple times and opthalmologist for the same complaint. Patient admits to blurry vision. Patient denies headaches, fevers, chills, loss of vision, or any other complaints. Time/Duration: < month Symptom Onset: Gradual Symptom Course: Unchanged Severity Level: 5 Past Medical History - Provider Review Nursing Documentation Reviewed: Yes - Travel History Have you recently traveled outside [place] w/in the past 3 mons?: No - Past History Past History: Non-Contributing - Infectious Disease Hx of Infectious Diseases: None - Tetanus Immunization Tetanus Immunization: Up to Date - Past Medical History Past Medical History: No Previous - Cardiac Hx Cardiac Disorders: Yes Hx Hypertension: Yes - Pulmonary Hx Respiratory Disorders: No - Neurological Hx Paralysis: No - HEENT Hx HEENT Disorder: No - Renal Hx Renal Disorder: No - Endocrine/Metabolic Hx Endocrine Disorders: Yes Hx Diabetes Mellitus Type 2: Yes - Hematological/Oncological Hx Blood Transfusions: No - Integumentary Hx Dermatological Disorder: No - Musculoskeletal/Rheumatological Hx Musculoskeletal Disorders: No - Gastrointestinal Hx Gastrointestinal Disorders: Yes Hx Gastroesophageal Reflux: Yes - Genitourinary/Gynecological Hx Genitourinary Disorders: No - Psychiatric Hx Emotional Abuse: No Hx Physical Abuse: No Hx Substance Use: No - Surgical History Hx Orthopedic Surgery: Yes (BILAT KNEE) - Anesthesia Hx Anesthesia: Yes Hx Anesthesia Reactions: No Hx Malignant Hyperthermia: No - Suicidal Assessment Feels Threatened In Home Enviroment: No Family/Social History - Physician Review Nursing Documentation Reviewed: Yes Family/Social History: No Known Family HX Smoking Status: Light Smoker < 10 Cigarettes Daily Hx Alcohol Use: No Hx Substance Use: No Hx Substance Use Treatment: No Allergies/Home Meds Allergies/Adverse Reactions: Allergies No Known Allergies Allergy (Verified 11/22/17 00:57) Home Medications: Home Meds Medication Instructions Recorded Confirmed Glimepiride [Amaryl] 4 mg PO DAILY 08/03/16 11/22/17 MetFORMIN ER [Glucophage XR] 500 mg PO DAILY MDD 500MG 04/10/17 11/22/17 Losartan [Cozaar] 1 tab PO DAILY 11/11/17 11/22/17 Simvastatin [Zocor] 1 tab PO HS 11/11/17 11/22/17 Cyclopentolate 1% [Cyclogyl 1% 1 drop OD BID 11/22/17 11/22/17 Opht] PrednisoLONE 1% [Prednisolone 1 drop OD QID 11/22/17 11/22/17 Acetate 5 Ml] Timolol Maleate 1 drop OD BID 11/22/17 11/22/17 Review of Systems - Physician Review All systems were reviewed & negative as marked: Yes Physical Exam Vital Signs Temp Pulse Resp BP Pulse Ox 11/22/17 01:03 98.5 F 94 H 18 151/92 H 96 Medical Decision Making ED Course and Treatment: 11/22/17 01:03 Impression: Patient is a 47 year old male presnting to the ED with Differential Diagnosis included but are not limited to: - Corneal abrasion - Conjunctivitis Plan: -- Right eye irrigation -- Patient reassurance Progress Notes: 11/22/17 01:50 - Examined patient. Right eye complaint remains unchanged for 2 weeks. - Irrigated right eye with sterile water. - Instructed patient to continue all the eye drops from his opthalmologist, stop rubbing his eyes with hands, and possibly get an eyepatch for his right eye. Patient is stable for discharge. Disposition/Present on Arrival - Present on Arrival Any Indicators Present on Arrival: No History of DVT/PE: No History of Uncontrolled Diabetes: No Urinary Catheter: No History of Decub. Ulcer: No History Surgical Site Infection Following: None - Disposition Have Diagnosis and Disposition been Completed?: Yes Diagnosis: Corneal abrasion, right Disposition: HOME/ ROUTINE Disposition Time: 01:53 Patient Plan: Discharge Condition: IMPROVED Discharge Instructions (ExitCare): Corneal Abrasion (DC) Additional Instructions: VALENTINO HERRERA, thank you for letting us take care of you today. Your provider was Leisa Keith MD and you were treated for eye pain. The emergency medical care you received today was directed at your acute symptoms. If you were prescribed any medication, please fill it and take as directed. It may take several days for your symptoms to resolve. Return to the Emergency Department if your symptoms worsen, do not improve, or if you have any other problems. Please contact your doctor or call one of the physicians/clinics you have been referred to that are listed on the Patient Visit Information form that is included in your discharge packet. Bring any paperwork you were given at discharge with you along with any medications you are taking to your follow up visit. Our treatment cannot replace ongoing medical care by a primary care provider outside of the emergency department. Thank you for allowing the [facility] team to be part of your care today. If you had an X-Ray or CT scan: A Radiologist will review the ED reading if any change in treatment is needed we will contact you. If you had a blood, urine, or wound culture: It will take several days for the results, if any change in treatment is needed we will contact you. If you had an STI test: It will take 48 hours for the results. Please call after 1 week if you have not heard back. Referrals: Marcos Anna MD [Staff Provider] - Follow up with primary
[2017-11-22 01:07] VITALS: RESP 18; TEMP 98.5
[2017-11-22 02:17] VITALS: BP 148/89; PULSE 85; O2SAT 100
== END 2017-11-22 02:00 | disposition home or self-care (01) ==
LOC: ED 00:38
DX: S05.01XA Injury of conjunctiva and corneal abrasion without foreign body, right eye, initial encounter (principal); E11.9 Type 2 diabetes mellitus without complications; I10 Essential (primary) hypertension; F17.210 Nicotine dependence, cigarettes, uncomplicated

== ENCOUNTER 2018-03-03 08:31 | Emergency (ER) | payer MEDICARE ==
[2018-03-03 09:10] VITALS: BMI 33.3
[2018-03-03 09:17] VITALS: RESP 18
--- NOTE | 2018-03-03 10:00 | ED PDOC ---
Arrival/HPI - General Chief Complaint: Upper Extremity Problem/Injury Time Seen by Provider: 03/03/18 09:33 Historian: Patient - History of Present Illness Narrative History of Present Illness (Text): 03/03/18 09:58 47 year old male, with past medical history of DM II, HTN, HLD, ADHD, and chronic neck/back pain, presents to the ED complaining of left neck and left shoulder pain since couple days. Patient reports sleeping on a futon bed for past couple days leading to the neck discomfort. Patient reports radiation of pain to his left shoulder intermittently and states discomfort with movement of the neck. Patient informs taking Tylenol and Motrin with no improvement to symptoms. Patient denies any recent trauma or injury. Patient denies any other associated somatic complaints. Patient denies any fevers, chills, headache, dizziness, chest pain, shortness of breath, dyspnea on exertion, cough, abdominal pain, nausea, vomiting, diarrhea, numbness/weakness or any other complaints. Time/Duration: < week Symptom Onset: Gradual Symptom Course: Unchanged Quality: Aching Activities at Onset: Light Context: Home Past Medical History - Provider Review Nursing Documentation Reviewed: Yes - Past History Past History: Non-Contributing - Infectious Disease Hx of Infectious Diseases: None - Tetanus Immunization Tetanus Immunization: Up to Date - Past Medical History Past Medical History: No Previous - Cardiac Hx Cardiac Disorders: Yes Hx Hypertension: Yes - Pulmonary Hx Respiratory Disorders: No - Neurological Hx Paralysis: No - HEENT Hx HEENT Disorder: No - Renal Hx Renal Disorder: No - Endocrine/Metabolic Hx Endocrine Disorders: Yes Hx Diabetes Mellitus Type 2: Yes - Hematological/Oncological Hx Blood Transfusions: No - Integumentary Hx Dermatological Disorder: No - Musculoskeletal/Rheumatological Hx Musculoskeletal Disorders: No - Gastrointestinal Hx Gastrointestinal Disorders: Yes Hx Gastroesophageal Reflux: Yes - Genitourinary/Gynecological Hx Genitourinary Disorders: No - Psychiatric Hx Psychophysiologic Disorder: No Hx Substance Use: No - Surgical History Hx Orthopedic Surgery: Yes (BILAT KNEE ligament repair) - Anesthesia Hx Anesthesia: Yes Hx Anesthesia Reactions: No Hx Malignant Hyperthermia: No - Suicidal Assessment Feels Threatened In Home Enviroment: No Family/Social History - Physician Review Nursing Documentation Reviewed: Yes Family/Social History: Unknown Family HX Smoking Status: Light Smoker < 10 Cigarettes Daily Hx Alcohol Use: No Hx Substance Use: No Hx Substance Use Treatment: No Allergies/Home Meds Allergies/Adverse Reactions: Allergies No Known Allergies Allergy (Verified 11/22/17 00:57) Home Medications: Home Meds Medication Instructions Recorded Confirmed Glimepiride [Amaryl] 4 mg PO DAILY 08/03/16 03/03/18 MetFORMIN ER [Glucophage XR] 500 mg PO DAILY MDD 500MG 04/10/17 03/03/18 Losartan [Cozaar] 1 tab PO DAILY 11/11/17 03/03/18 Simvastatin [Zocor] 1 tab PO HS 11/11/17 03/03/18 Review of Systems - Physician Review All systems were reviewed & negative as marked: Yes - Review of Systems Constitutional: absent: Fevers Eyes: absent: Vision Changes Respiratory: absent: SOB, Cough Cardiovascular: absent: Chest Pain, PHILLIPS Gastrointestinal: absent: Abdominal Pain, Diarrhea, Nausea, Vomiting Genitourinary Male: absent: Dysuria, Urinary Output Changes Musculoskeletal: Myalgias (left sided neck pain) Skin: absent: Rash Neurological: absent: Headache, Dizziness Physical Exam Vital Signs Reviewed: Yes Vital Signs Temp Pulse Resp BP Pulse Ox 03/03/18 09:16 97.9 F 89 18 147/102 H 97 Temperature: Afebrile Blood Pressure: Hypertensive Pulse: Regular Respiratory Rate: Normal Appearance: Positive for: Well-Appearing, Non-Toxic, Comfortable Pain Distress: None Mental Status: Positive for: Alert and Oriented X 3 - Systems Exam Head: Present: Atraumatic, Normocephalic Pupils: Present: PERRL Extroacular Muscles: Present: EOMI Conjunctiva: Present: Normal Neck: Present: Paraspinal Tenderness (Paraspinal tenderness to left neck ), Other (Decreased range of motion secondary to pain). No: MIDLINE TENDERNESS, JVD, Bruit Respiratory/Chest: Present: Clear to Auscultation, Good Air Exchange. No: Respiratory Distress, Accessory Muscle Use Cardiovascular: Present: Regular Rate and Rhythm, Normal S1, S2. No: Murmurs Abdomen: No: Tenderness, Distention, Peritoneal Signs Back: Present: Paraspinal Tenderness (Paraspinal tenderness to upper back). No: Midline Tenderness Upper Extremity: Present: Normal Inspection, Normal ROM, Neurovascularly Intact. No: Cyanosis, Edema, Tenderness Lower Extremity: Present: Normal Inspection, NORMAL PULSES, Normal ROM, Neurovascularly Intact. No: Edema Neurological: Present: GCS=15, CN II-XII Intact, Speech Normal, Motor Func Grossly Intact, Normal Sensory Function, Normal Cerebellar Funct, Gait Normal Skin: Present: Warm, Dry, Normal Color. No: Rashes Psychiatric: Present: Alert, Oriented x 3, Normal Insight, Normal Concentration Medical Decision Making ED Course and Treatment: 03/03/18 10:01 Impression: 47 year old male presents to the Emergency department complaining of left sided neck discomfort. Differential Diagnosis included but are not limited to: Musculoskeletal Plan: -- Flexeril -- Toradol -- Lidoderm -- Reassess and disposition Prior Visits: Notes and results from previous visits were reviewed. Progress Notes: 03/03/18 10:40 Patient feels better. Since he just had flexeril I made sure he wasn't driving home. His family is picking him up. He will make sure to continue stretches and take medications as prescribed. He will return to the ED if symptoms worsen or any other concern. - Scribe Statement The provider has reviewed the documentation as recorded by the Scribe Mercy Comer. All medical record entries made by the Scribe were at my direction and personally dictated by me. I have reviewed the chart and agree that the record accurately reflects my personal performance of the history, physical exam, medical decision making, and the department course for this patient. I have also personally directed, reviewed, and agree with the discharge instructions and disposition. Disposition/Present on Arrival - Present on Arrival Any Indicators Present on Arrival: No History of DVT/PE: No History of Uncontrolled Diabetes: No Urinary Catheter: No History of Decub. Ulcer: No History Surgical Site Infection Following: None - Disposition Have Diagnosis and Disposition been Completed?: Yes Diagnosis: Neck strain Disposition: HOME/ ROUTINE Disposition Time: 10:40 Patient Plan: Discharge Condition: IMPROVED Discharge Instructions (ExitCare): Cervical Muscle Strain Additional Instructions: VALENTINO HERRERA, thank you for letting us take care of you today. Your provider was Niraml Hinds DO and you were treated for Neck Strain. The emergency medical care you received today was directed at your acute symptoms. If you were prescribed any medication, please fill it and take as directed. It may take several days for your symptoms to resolve. Return to the Emergency Department if your symptoms worsen, do not improve, or if you have any other problems. Please contact your doctor or call one of the physicians/clinics you have been referred to that are listed on the Patient Visit Information form that is included in your discharge packet. Bring any paperwork you were given at discharge with you along with any medications you are taking to your follow up visit. Our treatment cannot replace ongoing medical care by a primary care provider outside of the emergency department. Thank you for allowing the [facility] team to be part of your care today. If you had an X-Ray or CT scan: A Radiologist will review the ED reading if any change in treatment is needed we will contact you. If you had a blood, urine, or wound culture: It will take several days for the results, if any change in treatment is needed we will contact you. If you had an STI test: It will take 48 hours for the results. Please call after 1 week if you have not heard back. Prescriptions: Cyclobenzaprine [Flexeril] 5 mg PO TID PRN #20 tab PRN Reason: Muscle Spasm Ibuprofen [Motrin] 600 mg PO Q6 PRN #30 tab PRN Reason: Pain, Moderate (4-7) Lidocaine 5% [Lidoderm] 1 ea TD DAILY PRN #4 patch PRN Reason: Pain, Moderate (4-7) Referrals: Cale Garnett MD [Primary Care Provider] - Follow up with primary Forms: [employer] ([place]), WORK NOTE
[2018-03-03] MEDS ORDERED: Lidocaine 5% Patch TD STA (10:01)
[2018-03-03 11:12] VITALS: BP 141/87; PULSE 84; TEMP 98.3; O2SAT 98
== END 2018-03-03 10:40 | disposition home or self-care (01) ==
LOC: ED 08:31
DX: S16.1XXA Strain of muscle, fascia and tendon at neck level, initial encounter (principal); X50.1XXA Overexertion from prolonged static or awkward postures, initial encounter; Y92.9 Unspecified place or not applicable
CPT/HCPCS: 96372; 99283; J1885

== ENCOUNTER 2018-05-27 20:19 | Emergency (ER) | payer MEDICARE ==
[2018-05-27 20:53] VITALS: BMI 37.5
[2018-05-27 20:58] VITALS: TEMP 98
--- NOTE | 2018-05-27 21:09 | ED PDOC ---
Arrival/HPI - General Chief Complaint: Lower Extremity Problem/Injury Time Seen by Provider: 05/27/18 20:53 Historian: Patient - History of Present Illness Narrative History of Present Illness (Text): 05/27/18 21:06 Patient is a 47 year old male, whose past medical history includes hyperlipidemia, diabetes, and hypertension, presents to the emergency department with left calf pain, for 2 days. Patient informs of posterior calf pain that radiates to the knee on the left leg. Patient informs pain is sharp and worsened by palpation and movement. Patient also informs of some associated edema. Patient states pain began while he was doing something standing on his knees. Patient denies any strike or trauma to the knee. Patient denies any chest pain, shortness of breath, fever, cough, or any other complaint. Time/Duration: < week (2 days) Symptom Onset: Gradual Symptom Course: Unchanged Activities at Onset: Light Context: Home Past Medical History - Provider Review Nursing Documentation Reviewed: Yes - Past History Past History: Non-Contributing - Infectious Disease Hx of Infectious Diseases: None - Tetanus Immunization Tetanus Immunization: Up to Date - Past Medical History Past Medical History: No Previous - Cardiac Hx Cardiac Disorders: Yes Hx Hypertension: Yes - Pulmonary Hx Respiratory Disorders: No - Neurological Hx Paralysis: No - HEENT Hx HEENT Disorder: No - Renal Hx Renal Disorder: No - Endocrine/Metabolic Hx Endocrine Disorders: Yes Hx Diabetes Mellitus Type 2: Yes - Hematological/Oncological Hx Blood Transfusions: No - Integumentary Hx Dermatological Disorder: No - Musculoskeletal/Rheumatological Hx Musculoskeletal Disorders: No - Gastrointestinal Hx Gastrointestinal Disorders: Yes Hx Gastroesophageal Reflux: Yes - Genitourinary/Gynecological Hx Genitourinary Disorders: No - Psychiatric Hx Psychophysiologic Disorder: No Hx Substance Use: No - Surgical History Hx Orthopedic Surgery: Yes (BILAT KNEE ligament repair) - Anesthesia Hx Anesthesia: Yes Hx Anesthesia Reactions: No Hx Malignant Hyperthermia: No - Suicidal Assessment Feels Threatened In Home Enviroment: No Family/Social History - Physician Review Nursing Documentation Reviewed: Yes Family/Social History: No Known Family HX Smoking Status: Light Smoker < 10 Cigarettes Daily Hx Alcohol Use: No Hx Substance Use: No Hx Substance Use Treatment: No Allergies/Home Meds Allergies/Adverse Reactions: Allergies No Known Allergies Allergy (Verified 11/22/17 00:57) Home Medications: Home Meds Medication Instructions Recorded Confirmed Glimepiride [Amaryl] 4 mg PO DAILY 08/03/16 05/27/18 MetFORMIN ER [Glucophage XR] 500 mg PO DAILY MDD 500MG 04/10/17 05/27/18 Losartan [Cozaar] 1 tab PO DAILY 11/11/17 05/27/18 Simvastatin [Zocor] 1 tab PO HS 11/11/17 05/27/18 Review of Systems - Physician Review All systems were reviewed & negative as marked: Yes - Review of Systems Constitutional: absent: Fevers Cardiovascular: absent: Chest Pain Physical Exam - Physical Exam Narrative Physical Exam (Text): 05/27/18 21:10 Constitutional: No acute distress. Head: Normocephalic. Atraumatic. Eyes: PERRL. ENT: Moist mucous membranes. Neck: Supple. Cardiovascular: Regular rate. Chest: No tenderness. Respiratory: Clear to auscultation bilaterally. GI: Soft. Nontender. Nondistended. Back: No CVA tenderness. Musculoskeletal: Left posterior calf pain , full ROM to knee and ankle, mildly larger than contralateral leg. Skin: No rash. Neurologic: Alert, no focal deficit. Vital Signs Reviewed: Yes Vital Signs Temp Pulse Resp BP Pulse Ox 05/27/18 20:56 98 F 81 18 147/90 97 Temperature: Afebrile Blood Pressure: Normal Pulse: Regular Respiratory Rate: Normal Appearance: Positive for: Well-Appearing, Non-Toxic, Comfortable Pain Distress: None Mental Status: Positive for: Alert and Oriented X 3 Medical Decision Making ED Course and Treatment: 05/27/18 21:11 Impression: 47 year old male presents with left calf pain. Plan: -- US left leg -- Reassess and disposition Prior Visits: Notes and results from previous visits were reviewed. Progress Notes: US Doppler negative for DVT. XR tib fib negative for fracture. XR knee negative for fracture or dislocation. Discharged home, f/u Ortho, return to ED for worsening pain, fever, inability to range, chest pain, dyspnea, or any other problem. - RAD Interpretation Radiology Orders: 05/27/18 21:01 DUPLEX LOWER EXTRM VEIN LEFT [US] Stat - Scribe Statement The provider has reviewed the documentation as recorded by the Marshall Plunkett Provider Scribe Attestation: All medical record entries made by the Scribe were at my direction and personally dictated by me. I have reviewed the chart and agree that the record accurately reflects my personal performance of the history, physical exam, medical decision making, and the department course for this patient. I have also personally directed, reviewed, and agree with the discharge instructions and disposition. Disposition/Present on Arrival - Present on Arrival Any Indicators Present on Arrival: No History of DVT/PE: No History of Uncontrolled Diabetes: No Urinary Catheter: No History of Decub. Ulcer: No History Surgical Site Infection Following: None - Disposition Have Diagnosis and Disposition been Completed?: Yes Diagnosis: Leg pain Disposition: HOME/ ROUTINE Disposition Time: 23:09 Patient Plan: Discharge Patient Problems: Current Active Problems Problem Status Onset Leg pain Acute Condition: GOOD Discharge Instructions (ExitCare): Muscle Spasms (DC) Prescriptions: Famotidine [Pepcid] 1 tab PO BID #14 tab Ibuprofen [Motrin] 600 mg PO Q6 #25 tab Referrals: Cale Garnett MD [Primary Care Provider] - Follow up with primary Forms: [employer] (Korean)
[2018-05-27 23:31] VITALS: BP 128/75; PULSE 78; RESP 17; O2SAT 99
--- NOTE | 2018-05-28 11:42 | RAD ---
Date of service: 05/27/2018 PROCEDURE: Left Knee Radiographs. HISTORY: Pain. COMPARISON: None. FINDINGS: BONES: Normal. No fracture. JOINTS: Normal. No osteoarthritis. JOINT EFFUSION: None. OTHER FINDINGS: None. IMPRESSION: Normal radiographs of the left knee.
--- NOTE | 2018-05-28 11:43 | RAD ---
Date of service: 05/27/2018 PROCEDURE: Radiographs of the left tibia and fibula. HISTORY: lower leg pain COMPARISON: None available. TECHNIQUE: Frontal and lateral views obtained. FINDINGS: BONES: No fracture or destructive lesion. JOINT SPACES: Unremarkable. OTHER FINDINGS: None. IMPRESSION: Unremarkable radiographs of the left tibia and fibula.
--- NOTE | 2018-05-28 17:25 | US ---
PROCEDURE: Left lower extremity venous US HISTORY: Leg pain and swelling. Evaluate for DVT. PHYSICIAN(S): Bimal Rubio MD. TECHNIQUE: Duplex sonography and color-flow Doppler with graded compression were used to evaluate the deep venous system of the left lower extremity. FINDINGS: The visualized deep venous system of the left lower extremity is sonographically normal and compressible. Normal wave forms and augmentation are seen. There is no sonographic evidence for deep venous thrombosis in the visualized segments of the left lower extremity. IMPRESSION: 1. No sonographic evidence for deep venous thrombosis in the visualized segments of the left lower extremity.
== END 2018-05-27 23:32 | disposition home or self-care (01) ==
LOC: ED 20:19
DX: M79.662 Pain in left lower leg (principal); E11.9 Type 2 diabetes mellitus without complications; I10 Essential (primary) hypertension; E78.5 Hyperlipidemia, unspecified; F17.210 Nicotine dependence, cigarettes, uncomplicated
CPT/HCPCS: 73560; 73590; 93971; 96372; 99284; J1885

== ENCOUNTER 2018-06-26 16:48 | Emergency (ER) | payer MEDICARE ==
[2018-06-26 16:48] VITALS: BMI 33.3
[2018-06-26 17:15] VITALS: RESP 18; TEMP 98.6
[2018-06-26] MEDS ORDERED: TDAP Vaccine 0.5 mL Syr IM ONE (18:13)
[2018-06-26] MEDS ORDERED: Tmp-Smz 800 mg-160 mg DS Tab PO STA (18:13)
--- NOTE | 2018-06-26 18:17 | ED PDOC ---
Arrival/HPI - General Chief Complaint: Abnormal Skin Integrity Time Seen by Provider: 06/26/18 16:50 Historian: Patient - History of Present Illness Narrative History of Present Illness (Text): 06/26/18 18:34 47-year-old male with past medical history of diabetes, reports 2-day history of red, swollen, painful mass in the left axilla. Patient reports no fever, chills, numbness, decrease in range of motion, trauma, injury. Patient has no additional complaints. Of note patient states that he takes metformin for his diabetes and that his fasting fingerstick is usually in the 150s. PMD Tamir Past Medical History - Past History Past History: Non-Contributing - Infectious Disease Hx of Infectious Diseases: None - Tetanus Immunization Tetanus Immunization: Up to Date - Past Medical History Past Medical History: No Previous - Cardiac Hx Cardiac Disorders: Yes Hx Hypertension: Yes - Pulmonary Hx Respiratory Disorders: No - Neurological Hx Paralysis: No - HEENT Hx HEENT Disorder: No - Renal Hx Renal Disorder: No - Endocrine/Metabolic Hx Endocrine Disorders: Yes Hx Diabetes Mellitus Type 2: Yes - Hematological/Oncological Hx Blood Transfusions: No - Integumentary Hx Dermatological Disorder: No - Musculoskeletal/Rheumatological Hx Musculoskeletal Disorders: No - Gastrointestinal Hx Gastrointestinal Disorders: Yes Hx Gastroesophageal Reflux: Yes - Genitourinary/Gynecological Hx Genitourinary Disorders: No - Psychiatric Hx Psychophysiologic Disorder: No Hx Substance Use: No - Surgical History Hx Orthopedic Surgery: Yes (BILAT KNEE ligament repair) - Anesthesia Hx Anesthesia: Yes Hx Anesthesia Reactions: No Hx Malignant Hyperthermia: No - Suicidal Assessment Feels Threatened In Home Enviroment: No Family/Social History Family/Social History: No Known Family HX Smoking Status: Light Smoker < 10 Cigarettes Daily Hx Alcohol Use: No Hx Substance Use: No Hx Substance Use Treatment: No Allergies/Home Meds Allergies/Adverse Reactions: Allergies No Known Allergies Allergy (Verified 11/22/17 00:57) Home Medications: Home Meds Medication Instructions Recorded Confirmed Glimepiride [Amaryl] 4 mg PO DAILY 08/03/16 05/27/18 MetFORMIN ER [Glucophage XR] 500 mg PO DAILY MDD 500MG 04/10/17 05/27/18 Losartan [Cozaar] 1 tab PO DAILY 11/11/17 05/27/18 Simvastatin [Zocor] 1 tab PO HS 11/11/17 05/27/18 Review of Systems - Review of Systems Constitutional: absent: Fatigue, Fevers Musculoskeletal: absent: Arthralgias, Back Pain, Neck Pain Skin: Abscess. absent: Rash, Skin Lesions Physical Exam Vital Signs Temp Pulse Resp BP Pulse Ox 06/26/18 17:12 98.6 F 88 18 170/80 H 99 Temperature: Afebrile Blood Pressure: Hypertensive Pulse: Regular Respiratory Rate: Normal Appearance: Positive for: Well-Appearing, Non-Toxic, Comfortable Pain Distress: None Mental Status: Positive for: Alert and Oriented X 3 - Systems Exam Upper Extremity: Present: Normal Inspection. No: Edema Lower Extremity: Present: Normal Inspection. No: Edema Neurological: Present: GCS=15, CN II-XII Intact, Speech Normal, Motor Func Grossly Intact, Normal Sensory Function Skin: Present: Warm, Dry, Normal Color, Abscess (+3 tender mildly erythematous abscess to the L axilla, the center abscess is noted to be fluctuant, the other 2 abscess are indurated, without surrounding cellulitis). No: Rashes Psychiatric: Present: Alert, Oriented x 3, Normal Insight, Agitated Medical Decision Making ED Course and Treatment: 06/26/18 18:15 Plan : - tylenol PO - tdap IM - keflex PO - bactrim PO - I&D I&D performed by PA. Patient tolerated the procedure well. Clean dressing applied. Advised to follow up with primary care physician or referral provided to 2 days for wound check and reevaluation without fail. Advised to take medication as prescribed. Return to the emergency room at any time for any new or worsening symptoms. Patient states he fully agrees with and understands discharge instructions. States that he agrees with the plan and disposition. Verbalized and repeated discharge instructions and plan. I have given the patient opportunity to ask any additional questions. Procedures - Incision and Drainage Site: L axilla Blade Size: 11 I & D Procedure: betadine prep, sterile drapes applied, sterile dressing applied Progress: Local anesthesia of lidocaine was administered to the site of incision and drainage, abscess was incised, 6 cc of thick yellow purulent material was expressed. Wound packing was inserted. - PA / TABULATING MACHINE MECHANIC / Resident Statement MD/DO has reviewed & agrees with the documentation as recorded. Disposition/Present on Arrival - Present on Arrival Any Indicators Present on Arrival: No History of DVT/PE: No History of Uncontrolled Diabetes: No Urinary Catheter: No History of Decub. Ulcer: No History Surgical Site Infection Following: None - Disposition Have Diagnosis and Disposition been Completed?: Yes Diagnosis: Abscess Disposition: HOME/ ROUTINE Disposition Time: 18:15 Patient Plan: Discharge Patient Problems: Current Active Problems Problem Status Onset Abscess Acute Condition: STABLE Discharge Instructions (ExitCare): Abscess Incision and Drainage Additional Instructions: Thank you for letting us take care of you today. You were treated for abscess. The emergency medical care you received today was directed at your acute symptoms. If you were prescribed any medication, please fill it and take as directed. It may take several days for your symptoms to resolve. Have wound packing removed after 2 days. Return to the Emergency Department if your symptoms worsen, do not improve, or if you have any other problems. Please contact your doctor in 2 days for re-evaluation and follow up / or call one of the physicians/clinics you have been referred to that are listed on the Patient Visit Information form that is included in your discharge packet. Bring any paperwork you were given at discharge with you along with any medications you are taking to your follow up visit. Our treatment cannot replace ongoing medical care by a primary care provider (PCP) outside of the emergency department. Thank you for allowing the [facility] team to be part of your care today. Prescriptions: Cephalexin [Keflex] 500 mg PO Q6 #28 capsule Sulfamethoxazole/Trimethoprim [Bactrim DS 800 mg-160 mg] 2 tab PO BID #28 tab Referrals: Cale Garnett MD [Primary Care Provider] - Follow up with primary Pierre Greene MD [Medical Doctor] - Follow up with primary Forms: [employer] (Ukrainian), WORK NOTE
[2018-06-26 19:20] VITALS: BP 154/78; PULSE 81; O2SAT 98
== END 2018-06-26 19:00 | disposition home or self-care (01) ==
LOC: ED 16:48
DX: L02.412 Cutaneous abscess of left axilla (principal); E11.9 Type 2 diabetes mellitus without complications; I10 Essential (primary) hypertension; F17.210 Nicotine dependence, cigarettes, uncomplicated; Z23 Encounter for immunization

== ENCOUNTER 2018-06-29 13:10 | Emergency (ER) | payer MEDICARE ==
[2018-06-29 13:43] VITALS: BMI 30.7
--- NOTE | 2018-06-29 14:23 | ED PDOC ---
Arrival/HPI - General Time Seen by Provider: 06/29/18 13:14 Historian: Patient - History of Present Illness Narrative History of Present Illness (Text): 06/29/18 14:20 47 year old male with no significant past medical history, presents to the emergency department for wound packing gauze removal to the left axilla. Patient reports he was and evaluated 3 days ago for a painful mass to the left axilla where an I&D was done. Patient is compliant with course of antibiotics. Patient denies any pain, swelling, or any other complaints. PMD: None Time/Duration: Other (3 days) Activities at Onset: Light Context: Home Past Medical History - Provider Review Nursing Documentation Reviewed: Yes - Past History Past History: Non-Contributing - Infectious Disease Hx of Infectious Diseases: None - Tetanus Immunization Tetanus Immunization: Up to Date - Past Medical History Past Medical History: No Previous - Cardiac Hx Cardiac Disorders: Yes Hx Hypertension: Yes - Pulmonary Hx Respiratory Disorders: No - Neurological Hx Paralysis: No - HEENT Hx HEENT Disorder: No - Renal Hx Renal Disorder: No - Endocrine/Metabolic Hx Endocrine Disorders: Yes Hx Diabetes Mellitus Type 2: Yes - Hematological/Oncological Hx Blood Transfusions: No - Integumentary Hx Dermatological Disorder: No - Musculoskeletal/Rheumatological Hx Musculoskeletal Disorders: No - Gastrointestinal Hx Gastrointestinal Disorders: Yes Hx Gastroesophageal Reflux: Yes - Genitourinary/Gynecological Hx Genitourinary Disorders: No - Psychiatric Hx Psychophysiologic Disorder: No Hx Substance Use: No - Surgical History Hx Orthopedic Surgery: Yes (BILAT KNEE ligament repair) - Anesthesia Hx Anesthesia: Yes Hx Anesthesia Reactions: No Hx Malignant Hyperthermia: No - Suicidal Assessment Feels Threatened In Home Enviroment: No Family/Social History - Physician Review Nursing Documentation Reviewed: Yes Family/Social History: No Known Family HX Smoking Status: Light Smoker < 10 Cigarettes Daily Hx Alcohol Use: No Hx Substance Use: No Hx Substance Use Treatment: No Allergies/Home Meds Allergies/Adverse Reactions: Allergies No Known Allergies Allergy (Verified 11/22/17 00:57) Home Medications: Home Meds Medication Instructions Recorded Confirmed Glimepiride [Amaryl] 4 mg PO DAILY 08/03/16 05/27/18 MetFORMIN ER [Glucophage XR] 500 mg PO DAILY MDD 500MG 04/10/17 05/27/18 Losartan [Cozaar] 1 tab PO DAILY 11/11/17 05/27/18 Simvastatin [Zocor] 1 tab PO HS 11/11/17 05/27/18 Review of Systems - Physician Review All systems were reviewed & negative as marked: Yes - Review of Systems Musculoskeletal: absent: Other (swelling to the left axilla ) Skin: Other (packing removal to the left axilla ) Physical Exam Vital Signs Reviewed: Yes Appearance: Positive for: Well-Appearing, Non-Toxic, Comfortable Pain Distress: None Mental Status: Positive for: Alert and Oriented X 3 - Systems Exam Back: Present: Normal Inspection Upper Extremity: Present: Other (induration noted to the left axilla. There is gauze present from lesion noted to the axilla. ). No: Cyanosis, Edema Neurological: Present: GCS=15, Speech Normal Skin: Present: Warm, Dry, Normal Color. No: Rashes Psychiatric: Present: Alert, Oriented x 3, Normal Insight, Normal Concentration Medical Decision Making ED Course and Treatment: 06/29/18 14:22 Impression: 47 year old male presents for wound packing removal to the left axilla which was placed 3 days ago. Plan: -- Packing removal -- Reassess and disposition Prior Visits: Notes and results from previous visits were reviewed. Progress Notes: 06/29/18 14:3 Wound packing removed. Patient is in no acute distress. I have discussed the plan with the patient, who expresses understanding. Patient in agreement with plan to be discharged home. Patient is stable for discharge. Patient was instructed to follow up with physician or return if symptoms worsen or new concerning symptoms arise. Disposition/Present on Arrival - Present on Arrival History of DVT/PE: No History of Uncontrolled Diabetes: No Urinary Catheter: No History Surgical Site Infection Following: None - Disposition Diagnosis: Encounter for wound care, Abscess of axilla, left Disposition: HOME/ ROUTINE Patient Problems: Current Active Problems Problem Status Onset Encounter for wound care Acute Abscess of axilla, left Acute Condition: IMPROVED Discharge Instructions (ExitCare): Abscess Incision and Drainage (DC) Print Language: GERMAN Additional Instructions: All medical record entries made by the Scribe were at my direction and personally dictated by me. I have reviewed the chart and agree that the record accurately reflects my personal performance of the history, physical exam, medical decision making, and the department course for this patient. I have also personally directed, reviewed, and agree with the discharge instructions and disposition. Please follow up in clinic You may remove the wound dressing and wash as normal after 12 hours Referrals: [facility] [place]] - Follow up with primary Rosemary Ely MD [Medical Doctor] - Follow up with primary Forms: WORK NOTE
[2018-06-29 15:01] VITALS: TEMP 98.9; O2SAT 97
[2018-06-29 15:04] VITALS: BP 143/89; PULSE 70; RESP 16
== END 2018-06-29 14:58 | disposition home or self-care (01) ==
LOC: ED 13:10
DX: L02.412 Cutaneous abscess of left axilla (principal); Z48.00 Encounter for change or removal of nonsurgical wound dressing; E11.9 Type 2 diabetes mellitus without complications; I10 Essential (primary) hypertension; F17.210 Nicotine dependence, cigarettes, uncomplicated

== ENCOUNTER 2018-08-16 16:27 | Emergency (ER) | payer MEDICARE ==
[2018-08-16 16:28] VITALS: BMI 30.7
[2018-08-16 16:40] VITALS: BP 150/93; PULSE 99; RESP 18; TEMP 97.6; O2SAT 97
--- NOTE | 2018-08-16 16:42 | ED PDOC ---
Arrival/HPI - History of Present Illness Narrative History of Present Illness (Text): 08/16/18 16:43 Patient is a 47 yo male with a history of T2DM, HTN, HLD, ADHD, and chronic neck/back pain who presents with left facial swelling. Patient states that he believes he was bitten by an insect Saturday night. He says that he developed facial swelling adjacent to his left eye. He reports tenderness and pain with tight closure of his eye. He denies pain with eye movement. He denies vision changes. He attempted to put hydrogen peroxide and ice on the area without relief. He also attempted to squeeze the area to see if any pus would come out. He denies fevers. Time/Duration: 24 hours Symptom Onset: Sudden Symptom Course: Worsening <Ritu Cruz - Last Filed: 08/16/18 16:49> <Jose Chun - Last Filed: 08/16/18 18:54> - General Chief Complaint: Abnormal Skin Integrity Time Seen by Provider: 08/16/18 16:41 Past Medical History - Provider Review Nursing Documentation Reviewed: Yes - Past History Past History: Non-Contributing - Infectious Disease Hx of Infectious Diseases: None - Tetanus Immunization Tetanus Immunization: Up to Date - Past Medical History Past Medical History: No Previous - Cardiac Hx Cardiac Disorders: Yes Hx Hypertension: Yes - Pulmonary Hx Respiratory Disorders: No - Neurological Hx Paralysis: No - HEENT Hx HEENT Disorder: No - Renal Hx Renal Disorder: No - Endocrine/Metabolic Hx Endocrine Disorders: Yes Hx Diabetes Mellitus Type 2: Yes - Hematological/Oncological Hx Blood Transfusions: No - Integumentary Hx Dermatological Disorder: No - Musculoskeletal/Rheumatological Hx Musculoskeletal Disorders: No - Gastrointestinal Hx Gastrointestinal Disorders: Yes Hx Gastroesophageal Reflux: Yes - Genitourinary/Gynecological Hx Genitourinary Disorders: No - Psychiatric Hx Psychophysiologic Disorder: No Hx Substance Use: No - Surgical History Hx Orthopedic Surgery: Yes (BILAT KNEE ligament repair) - Anesthesia Hx Anesthesia: Yes Hx Anesthesia Reactions: No Hx Malignant Hyperthermia: No - Suicidal Assessment Feels Threatened In Home Enviroment: No <Ritu Cruz - Last Filed: 08/16/18 16:49> Family/Social History - Physician Review Nursing Documentation Reviewed: Yes Family/Social History: Unknown Family HX Smoking Status: cigars Hx Alcohol Use: No Hx Substance Use: No Hx Substance Use Treatment: No <Ritu Cruz - Last Filed: 08/16/18 16:49> Allergies/Home Meds <Ritu Cruz - Last Filed: 08/16/18 16:49> <Jose Chun - Last Filed: 08/16/18 18:54> Allergies/Adverse Reactions: Allergies No Known Allergies Allergy (Verified 11/22/17 00:57) Home Medications: Home Meds Medication Instructions Recorded Confirmed Glimepiride [Amaryl] 4 mg PO DAILY 08/03/16 05/27/18 MetFORMIN ER [Glucophage XR] 500 mg PO DAILY MDD 500MG 04/10/17 05/27/18 Losartan [Cozaar] 1 tab PO DAILY 11/11/17 05/27/18 Simvastatin [Zocor] 1 tab PO HS 11/11/17 05/27/18 Review of Systems - Review of Systems Constitutional: absent: Fevers Eyes: absent: Vision Changes, Photophobia, Eye Pain ENT: absent: Hearing Changes, Tinnitus Respiratory: absent: SOB, Cough Cardiovascular: absent: Chest Pain, Palpitations Gastrointestinal: Normal Genitourinary Male: Normal Musculoskeletal: Back Pain (chronic) Skin: Skin Lesions. absent: Pruritis Neurological: absent: Headache, Dizziness, Focal Weakness Endocrine: absent: Diaphoresis Hemo/Lymphatic: absent: Adenopathy <Ritu Cruz - Last Filed: 08/16/18 16:49> Physical Exam Vital Signs Reviewed: Yes Vital Signs Temp Pulse Resp BP Pulse Ox 08/16/18 16:35 97.6 F 99 H 18 150/93 H 97 Temperature: Afebrile Blood Pressure: Hypertensive Pulse: Regular Respiratory Rate: Normal Appearance: Positive for: Non-Toxic, Comfortable Pain Distress: None Mental Status: Positive for: Alert and Oriented X 3 - Systems Exam Head: Present: Atraumatic, Normocephalic, Swelling (2x2 cm area of fluctuance with central pinpoint erythematous lesion left temporal area) Pupils: Present: PERRL Extroacular Muscles: Present: EOMI Conjunctiva: Present: Normal Respiratory/Chest: Present: Clear to Auscultation, Good Air Exchange Cardiovascular: Present: Regular Rate and Rhythm, Normal S1, S2 Skin: Present: Warm, Dry, Normal Color Lymphatic: No: Cervical Adenopathy Psychiatric: Present: Alert, Oriented x 3, Normal Insight, Normal Concentration, Normal Affect, Normal Mood <Ritu Cruz - Last Filed: 08/16/18 16:49> Vital Signs Temp Pulse Resp BP Pulse Ox 08/16/18 16:35 97.6 F 99 H 18 150/93 H 97 <Jose Chun - Last Filed: 08/16/18 18:54> Medical Decision Making ED Course and Treatment: 08/16/18 17:04 Advised patient to use warn compresses and take PO antibiotic. Advised him to re turn to ED if lesion comes to a head and needs to be drained. Patient agreeable with plan for discharge home. <Ritu Cruz - Last Filed: 08/16/18 16:49> ED Course and Treatment: Seen and examined with resident. 47 y/o M p/w small area of erythema and swelling to L sided quaker. No pain with EOMI. No appreciable area of fluctuance. No white head point. Advised warm compress, antibiotics and to watch for wrosenign edema, pain, eye pain with movement, fever. <Jose Chun - Last Filed: 08/16/18 18:54> Disposition/Present on Arrival - Present on Arrival Any Indicators Present on Arrival: No History of DVT/PE: No History of Uncontrolled Diabetes: No Urinary Catheter: No History of Decub. Ulcer: No History Surgical Site Infection Following: None - Disposition Have Diagnosis and Disposition been Completed?: Yes Disposition Time: 16:49 Patient Plan: Discharge <Ritu Cruz - Last Filed: 08/16/18 16:49> <Jose Chun - Last Filed: 08/16/18 18:54> - Disposition Diagnosis: Bug bite of face with infection Disposition: HOME/ ROUTINE Condition: GOOD Discharge Instructions (ExitCare): Insect Bites and Stings (DC) Additional Instructions: VALENTINO HERRERA JR., thank you for letting us take care of you today. Your provider was Jose Chun MD and you were treated for BIT MY THE EYE. The emergency medical care you received today was directed at your acute symptoms. If you were prescribed any medication, please fill it and take as directed. It may take several days for your symptoms to resolve. Return to the Emergency Department if your symptoms worsen, do not improve, or if you have any other problems. Please contact your doctor or call one of the physicians/clinics you have been referred to that are listed on the Patient Visit Information form that is included in your discharge packet. Bring any paperwork you were given at discharge with you along with any medications you are taking to your follow up visit. Our treatment cannot replace ongoing medical care by a primary care provider outside of the emergency department. Thank you for allowing the [facility] team to be part of your care today. Take Doxycycline 100 mg twice daily for a total of 10 days. Wear sunscreen, hots, and long-sleeved clothing while on this medication as it can cause skin irritation with sun exposure. Apply warm compresses to affected area. Prescriptions: Doxycycline Hyclate [Doryx] 100 mg PO BID #14 cap [place]: [facility] [place] [facility] [place] - Follow up with primary [facility] [Outside] - Follow up with primary Forms: [employer] (Turkmen)
== END 2018-08-16 17:07 | disposition home or self-care (01) ==
LOC: ED 16:27
DX: S00.86XA Insect bite (nonvenomous) of other part of head, initial encounter (principal); L08.9 Local infection of the skin and subcutaneous tissue, unspecified; W57.XXXA Bitten or stung by nonvenomous insect and other nonvenomous arthropods, initial encounter

== ENCOUNTER 2018-08-19 22:35 | Emergency (ER) | payer MEDICARE ==
[2018-08-19 22:35] VITALS: BMI 30.7
[2018-08-20 00:42] VITALS: TEMP 97.8
[2018-08-20] MEDS ORDERED: Tmp-Smz 800 mg-160 mg DS Tab PO STA (00:52)
[2018-08-20] MEDS ORDERED: Bacitracin 500 Units/gm Oint Foilpak UD TOP ONE (00:52)
--- NOTE | 2018-08-20 01:35 | ED PDOC ---
Arrival/HPI - General Chief Complaint: Bite Time Seen by Provider: 08/20/18 00:41 Historian: Patient - History of Present Illness Narrative History of Present Illness (Text): 08/20/18 01:43 47-year-old male presents today for reevaluation of a wound to the left side of forehead adjacent to the eye. Patient states he was seen in the ER on 527 for evaluation of redness to the left side of the face. Patient states that he was started on antibiotics and he has taken 4 pills. Patient states he has been applying warm compresses and noticed a emanuel has appeared along the lateral aspect. Patient denies headache dizziness or weakness. No chest pain or shortness of breath. He denies fevers or chills. Patient denies any increase in redness. No other complaints. Past Medical History - Provider Review Nursing Documentation Reviewed: Yes - Travel History Have you recently traveled outside [place] w/in the past 3 mons?: No - Past History Past History: Non-Contributing - Infectious Disease Hx of Infectious Diseases: None - Tetanus Immunization Tetanus Immunization: Up to Date - Past Medical History Past Medical History: No Previous - Cardiac Hx Cardiac Disorders: Yes Hx Hypertension: Yes - Pulmonary Hx Respiratory Disorders: No - Neurological Hx Paralysis: No - HEENT Hx HEENT Disorder: No - Renal Hx Renal Disorder: No - Endocrine/Metabolic Hx Endocrine Disorders: Yes Hx Diabetes Mellitus Type 2: Yes - Hematological/Oncological Hx Blood Transfusions: No - Integumentary Hx Dermatological Disorder: No - Musculoskeletal/Rheumatological Hx Musculoskeletal Disorders: No - Gastrointestinal Hx Gastrointestinal Disorders: Yes Hx Gastroesophageal Reflux: Yes - Genitourinary/Gynecological Hx Genitourinary Disorders: No - Psychiatric Hx Psychophysiologic Disorder: No Hx Substance Use: No - Surgical History Hx Orthopedic Surgery: Yes (BILAT KNEE ligament repair) - Anesthesia Hx Anesthesia: Yes Hx Anesthesia Reactions: No Hx Malignant Hyperthermia: No - Suicidal Assessment Feels Threatened In Home Enviroment: No Family/Social History - Physician Review Nursing Documentation Reviewed: Yes Family/Social History: Unknown Family HX Smoking Status: Never Smoked Hx Alcohol Use: No Hx Substance Use: No Hx Substance Use Treatment: No Allergies/Home Meds Allergies/Adverse Reactions: Allergies No Known Allergies Allergy (Verified 11/22/17 00:57) Home Medications: Home Meds Medication Instructions Recorded Confirmed Glimepiride [Amaryl] 4 mg PO DAILY 08/03/16 05/27/18 MetFORMIN ER [Glucophage XR] 500 mg PO DAILY MDD 500MG 04/10/17 05/27/18 Losartan [Cozaar] 1 tab PO DAILY 11/11/17 05/27/18 Simvastatin [Zocor] 1 tab PO HS 11/11/17 05/27/18 Review of Systems - Review of Systems Constitutional: absent: Fatigue, Fevers Respiratory: absent: SOB, Cough Cardiovascular: absent: Chest Pain, Palpitations Gastrointestinal: absent: Abdominal Pain, Nausea, Vomiting Genitourinary Male: absent: Dysuria, Frequency Musculoskeletal: absent: Back Pain, Neck Pain Skin: Abscess, Cellulitis Neurological: absent: Headache, Dizziness Psychiatric: absent: Anxiety, Depression, Suicidal Ideation Physical Exam Vital Signs Reviewed: Yes Vital Signs Temp Pulse Resp BP Pulse Ox 08/20/18 00:40 97.8 F 88 15 142/96 H 96 Temperature: Afebrile Blood Pressure: Hypertensive Pulse: Regular Respiratory Rate: Normal Appearance: Positive for: Well-Appearing, Non-Toxic, Comfortable Pain Distress: None Mental Status: Positive for: Alert and Oriented X 3 - Systems Exam Head: Present: Other (left lateral forehead just adjacent to the lateral aspect of the eyebrow; there is a small pustule noted with surrounding erythema. + tenderness. minimal swelling. there is slight erythema noted to the inferior lateral aspect of the cheek; ) Pupils: Present: PERRL Extroacular Muscles: Present: EOMI, Other (no pain with eye movement. ). No: Entrapment Conjunctiva: Present: Normal Mouth: Present: Moist Mucous Membranes Nose (Internal): Present: Normal Inspection Neck: Present: Normal Range of Motion Respiratory/Chest: Present: Clear to Auscultation, Good Air Exchange. No: Respiratory Distress, Accessory Muscle Use Cardiovascular: Present: Regular Rate and Rhythm Neurological: Present: GCS=15, Speech Normal Skin: Present: Warm, Dry Psychiatric: Present: Alert, Oriented x 3 Medical Decision Making ED Course and Treatment: 08/20/18 01:35 pt is non toxic well appearing; no distress. presents for re-evaluation as he was told to return if abscess forms. Afebrile. there is a small pustule noted to the lateral aspect of the forehead/ adjacent to the left eyebrow; there is a small amount of purulent discharge noted. + surrounding induration and erythema; minimal tenderness with minimal swelling. bacitracin and bandaid applied. pt was advised to take bactrim and keflex and f/u with PMD and surgeon. pt was advised to return in 2 days for wound check or return immediately if s igns of infection develop. Patient was advised immediate return if fever, increasing pain, increasing redness, increasing swelling or purulent discharge develop. Patient verbalizes understanding of discharge instructions and need for immediate followup. All aspects of this case were discussed the attending of record. Impression: Abscess, face, cellulitis, face Tylenol every 4 hours as needed for pain Bactrim 1 tablet twice daily x7 days Keflex 1 capsule 4 times daily x7 days Keep the wound clean and dry. Apply warm compresses frequently Follow-up with the primary care physician within the next 2 days Follow-up with a surgeon within the next 2 days Return immediately if symptoms worsen persist or if new concerning symptoms develop - Medication Orders Current Medication Orders: Discontinued Medications Bacitracin (Bacitracin) 1 ea TOP ONCE ONE Stop: 08/20/18 00:53 Cephalexin Monohydrate (Keflex) 500 mg PO STAT STA; Protocol Stop: 08/20/18 00:53 Trimethoprim/Sulfamethoxazole (Bactrim Ds Tab) 1 tab PO STAT STA; Protocol Stop: 08/20/18 00:53 Disposition/Present on Arrival - Present on Arrival Any Indicators Present on Arrival: No History of DVT/PE: No History of Uncontrolled Diabetes: No Urinary Catheter: No History of Decub. Ulcer: No History Surgical Site Infection Following: None - Disposition Have Diagnosis and Disposition been Completed?: Yes Diagnosis: Abscess of face, Cellulitis, face Disposition: HOME/ ROUTINE Disposition Time: 01:10 Patient Plan: Discharge Patient Problems: Current Active Problems Problem Status Onset Abscess of face Acute Cellulitis, face Acute Condition: GOOD Discharge Instructions (ExitCare): Skin Abscess, Boil (DC), Cellulitis (ED) Additional Instructions: Tylenol every 4 hours as needed for pain Bactrim 1 tablet twice daily x7 days Keflex 1 capsule 4 times daily x7 days Keep the wound clean and dry. Apply warm compresses frequently Follow-up with the primary care physician within the next 2 days Follow-up with a surgeon within the next 2 days Return immediately if symptoms worsen persist or if new concerning symptoms develop Prescriptions: Cephalexin [Keflex] 500 mg PO QID #28 capsule Mupirocin 2% Oint UD [Bactroban Ointment] 1 applic EXT TID #1 ea Sulfamethoxazole/Trimethoprim [Bactrim DS 800 mg-160 mg] 1 tab PO BID #14 tab Referrals: Rosemary Ely MD [Medical Doctor] - Follow up with primary Aravind Almonte MD [Staff Provider] - Follow up with primary Forms: [employer] (Belizean), WORK NOTE
[2018-08-20 03:07] VITALS: BP 135/74; PULSE 81; RESP 14; O2SAT 97
== END 2018-08-20 01:50 | disposition home or self-care (01) ==
LOC: ED 22:35
DX: L03.211 Cellulitis of face (principal); L02.01 Cutaneous abscess of face